=== PATIENT | male | born 1950 | race Caucasian/White ===

== ENCOUNTER → 2016-05-26 | Outpatient (CLI) | payer MEDICARE ==
[2016-05-26 14:28] LABS: ALBUMIN 3.8 GM/DL (3.2-5.2); CALCIUM LEVEL 9.2 MG/DL (8.8-10.2); CREATININE FOR GFR 1.38 MG/DL (0.70-1.30); GLOMERULAR FILTRATION RATE 54.9 (>49); PHOSPHORUS LEVEL 3.2 MG/DL (2.5-4.9); POTASSIUM SERUM 3.5 MEQ/L (3.5-5.1)
== END ==
LOC: M LAB 13:13
PROVIDERS: ATTEND Family Medicine
DX: N18.3 Chronic kidney disease, stage 3 (moderate) (principal)

== ENCOUNTER → 2016-10-24 | Outpatient (CLI) | payer MEDICARE ==
[2016-10-24 11:31] LABS: ALBUMIN 3.7 GM/DL (3.2-5.2); ALBUMIN/GLOBULIN RATIO 1.23 (1.00-1.93); BILIRUBIN,DIRECT 0.2 MG/DL (0.0-0.2); BILIRUBIN,TOTAL 0.5 MG/DL (0.2-1.0); TOTAL PROTEIN 6.7 GM/DL (6.4-8.2)
== END ==
LOC: M LAB 10:15
PROVIDERS: ATTEND Family Medicine
DX: K76.89 Other specified diseases of liver (principal)

== ENCOUNTER → 2016-11-10 | Outpatient (CLI) | payer MEDICARE ==
--- NOTE | 2016-11-10 12:21 | REP ---
SCROTAL SONOGRAPHY: HISTORY: Scrotal swelling. FINDINGS: Testicular parenchyma is homogeneous. No intratesticular mass lesion is seen. Right testis measures 4.1 x 2.7 x 2.6 cm. Left testicular dimensions are 5.7 x 2.3 x 2.8 cm. There is a large cystic fluid collection in the left hemiscrotum displacing the left testis inferiorly and laterally. This fluid collection measures 12.7 x 12.1 x 10.3 cm. The epididymis cannot be seen suggesting that the fluid collection may be a large left epididymal cyst or spermatic field. Hydrocele is a possibility as well. There is a small right-sided hydrocele. There are septated epididymal cysts on the right. Resistive indices are normal in both testes by Doppler 0.48 on the right and 0.69 on the left. There is no evidence of torsion. IMPRESSION: 12.7 cm cystic fluid collection in the left scrotum, epididymal cysts versus spermatocele versus hydrocele. No intratesticular mass lesion seen. Signed by Armani Galindo MD 11/10/2016 02:47 P
== END ==
LOC: M RAD 09:38
PROVIDERS: ATTEND Family Medicine
DX: N50.89 Other specified disorders of the male genital organs (principal)

== ENCOUNTER → 2017-01-28 | Outpatient (REF) | payer MEDICARE ==
[~2017-01-28] MED LIST: AMLO10TA2 PO; ASPI1TAB PO; CHLO125TA; CHLO25TA PO; CO Q100C10 PO; DOXA1TAB49; FLAX10005 PO; GLUC1CAP10 PO; KRILL OIL PO; LABE20TAB PO; LUTE6TAB2 PO; LUTECAP3 PO; SPIR25TA2; VALS1TAB48 PO; [UNRECOGNIZED DRUG - OTHER] PO
[2017-01-28 12:09] LABS: MEAN CORPUSCULAR HEMOGLOBIN 30.2 pg (27.0-33.0); MEAN CORPUSCULAR HGB CONC 32.6 g/dl (32.0-36.5); MEAN CORPUSCULAR VOLUME 92.6 fl (80.0-96.0); PLATELET COUNT, AUTOMATED 225 10^3/uL (150-450); RED CELL DISTRIBUTION WIDTH 13.9 % (11.5-14.5); WHITE BLOOD COUNT 7.5 10^3/uL (4.0-10.0)
[2017-01-28 12:21] LABS: INR 1.04
[2017-01-28 12:46] LABS: CALCIUM LEVEL 9.1 MG/DL (8.8-10.2); CREATININE FOR GFR 1.44 MG/DL (0.70-1.30); GLOMERULAR FILTRATION RATE 52.1 (>49); POTASSIUM SERUM 3.7 MEQ/L (3.5-5.1)
== END ==
LOC: M LABSMT 09:02 → M LABDRAWC 09:09
PROVIDERS: ATTEND Nurse Practitioner Women's Health
DX: Z01.818 Encounter for other preprocedural examination (principal); N43.3 Hydrocele, unspecified; N50.3 Cyst of epididymis; I11.9 Hypertensive heart disease without heart failure; N18.3 Chronic kidney disease, stage 3 (moderate); G47.33 Obstructive sleep apnea (adult) (pediatric); E66.01 Morbid (severe) obesity due to excess calories; Z68.43 Body mass index [BMI] 50.0-59.9, adult; Z23 Encounter for immunization
CPT/HCPCS: 36415; 71020; 80048; 81001; 85027; 85610; 85730; 87086; 90732; G0009; G0463

== ENCOUNTER → 2017-01-28 | Outpatient (CLI) | payer MEDICARE ==
--- NOTE | 2017-01-28 11:30 | REP ---
Clinical: Preoperative assessment. Hydrocele. . Comparison: 10/03/2015 . Technique: PA and lateral. Findings: The mediastinum and cardiac silhouette are stable and cardiomegaly is again identified and unchanged. The lung lopez are clear and without acute consolidation, effusion, or pneumothorax. The skeletal structures are intact and normal. Impression: 1. No acute cardiopulmonary process. Signed by Kai Atwood MD 01/28/2017 11:22 A
== END ==
LOC: M CLY 10:55
PROVIDERS: ATTEND Nurse Practitioner Women's Health
DX: N43.3 Hydrocele, unspecified (principal)

== ENCOUNTER 2017-02-25 06:35 | Inpatient (IN) | payer MEDICARE ==
[2017-02-25] VITALS (12 sets, daily range): BP systolic 98–132; BP diastolic 53–61; O2SAT 97
[~2017-02-25] VITALS: Ht 175.3 cm; Wt 156.0 kg
[2017-02-25] MEDS ORDERED: LR 1,000 ML IV ONE (07:00)
[2017-02-25] MEDS ORDERED: VASOPRESSIN INJ 20 UNITS/ML VIAL ONE (08:00)
[2017-02-25] MEDS ORDERED: BACITRACIN OINT 30GM ONE (08:00)
[2017-02-25] MEDS ORDERED: MIDAZOLAM INJ 2 MG/2 ML VIAL (J2250) As Ordered ONE ×3 (08:30→10:57)
[2017-02-25] MEDS ORDERED: fentaNYL 100 MCG/2 ML INJECTION (J3010) As Ordered ONE ×2 (08:30→09:07)
[2017-02-25] MEDS ORDERED: PROPOFOL 200 MG/20 ML VIAL As Ordered ONE ×2 (08:30→09:08)
[2017-02-25] MEDS ORDERED: LIDOCAINE 2% MDV 20 ML VIAL As Ordered ONE (08:31)
[2017-02-25] MEDS ORDERED: BUPIVACAINE HCL 0.25% 30 ML VIAL As Ordered ONE ×2 (08:31→08:32)
[2017-02-25] MEDS ORDERED: BACITRACIN OINT 30GM As Ordered ONE (08:35)
[2017-02-25] MEDS: CHLORHEXIDINE ORAL RINSE 0.12%/15ML 120ML BOTTLE MT SCH ×2 (09:00→21:00)
[2017-02-25] MEDS ORDERED: ePHEDrine SULFATE 25 MG/5 ML(5MG/ML) SYRINGE As Ordered ONE (09:06)
[2017-02-25] MEDS ORDERED: PHENYLEPHRINE INJ 10MG/ML VIAL (J2370) As Ordered ONE (09:30)
[2017-02-25] MEDS ORDERED: VASOPRESSIN INJ 20 UNITS/ML VIAL As Ordered ONE (09:34)
[2017-02-25 10:19] LABS: ABG BASE EXCESS -4.6 (-2.0-2.0); ABG HCO3 24.2 MEQ/L (22.0-26.0); ABG PARTIAL PRESSURE CO2 61.2 mmHg (35.0-45.0); ABG PARTIAL PRESSURE O2 105.8 mmHg (75.0-100.0); ABG TOTAL CO2 26.1 MEQ/L (23.0-31.0); ABG pH (ARTERIAL) 7.215 UNITS (7.350-7.450)
[2017-02-25 10:20] LABS: ABG STANDARD HCO3 20.7 MEQ/L (22.0-26.0)
--- NOTE | 2017-02-25 10:36 | REP ---
PORTABLE CHEST: AP portable view of the chest is performed and compared to a prior study of 01/28/2017. Heart appears enlarged. Mediastinal silhouette appears widened likely due to magnification. Vascular congestion is noted. There appears to be consolidative infiltrate or atelectasis in the left lower lobe. Endotracheal tube is seen with the tip about 5 cm above the jt. Signed by Baron Schuler MD 02/26/2017 09:07 A
[2017-02-25] MEDS ORDERED: PROPOFOL 1,000 MG/100 ML VIAL As Ordered ONE (10:43)
[2017-02-25] MEDS: MIDAZOLAM INJ 2 MG/2 ML VIAL (J2250) IV PRN ×6 (10:48→23:10)
[2017-02-25] MEDS ORDERED: MORPHINE 2 MG/ML 1ML SYRINGE As Ordered ONE (10:53)
[2017-02-25] MEDS: PROPOFOL 1,000 MG in APPROPRIATE DILUENT 1 EA IV SCH ×6 (10:55→23:11)
[2017-02-25] MEDS ORDERED: fentaNYL 100 MCG/2 ML INJECTION (J3010) IV PRN (11:00)
[2017-02-25] MEDS ORDERED: LR 1,000 ML IV SCH ×2 (11:00)
[2017-02-25] MEDS ORDERED: MORPHINE 2 MG/ML 1ML SYRINGE IV PRN (11:00)
[2017-02-25] MEDS ORDERED: ONDANSETRON 4MG/2ML VIAL (J2405) IV PRN (11:00)
[2017-02-25] MEDS ORDERED: MORPHINE 4 MG/ML 1ML SYRINGE IV PRN (11:00)
[2017-02-25 11:17] LABS: MEAN CORPUSCULAR HEMOGLOBIN 30.2 pg (27.0-33.0); MEAN CORPUSCULAR HGB CONC 32.7 g/dl (32.0-36.5); MEAN CORPUSCULAR VOLUME 92.6 fl (80.0-96.0); PLATELET COUNT, AUTOMATED 214 10^3/uL (150-450); RED CELL DISTRIBUTION WIDTH 14.1 % (11.5-14.5); WHITE BLOOD COUNT 8.6 10^3/uL (4.0-10.0)
[2017-02-25 11:18] LABS: ABG BASE EXCESS 2.2 (-2.0-2.0); ABG HCO3 29.7 MEQ/L (22.0-26.0); ABG PARTIAL PRESSURE CO2 58.6 mmHg (35.0-45.0); ABG PARTIAL PRESSURE O2 59.9 mmHg (75.0-100.0); ABG STANDARD HCO3 26.2 MEQ/L (22.0-26.0); ABG TOTAL CO2 31.5 MEQ/L (23.0-31.0); ABG pH (ARTERIAL) 7.323 UNITS (7.350-7.450)
[2017-02-25 11:42] LABS: ANION GAP 8 MEQ/L (8-16); BLOOD UREA NITROGEN 22 MG/DL (7-18); CALCIUM LEVEL 8.7 MG/DL (8.8-10.2); CARBON DIOXIDE LEVEL 32 MEQ/L (21-32); CHLORIDE LEVEL 100 MEQ/L (98-107); CREATININE FOR GFR 1.55 MG/DL (0.70-1.30); GLOMERULAR FILTRATION RATE 47.8 (>49); GLUCOSE, FASTING 213 MG/DL (80-110); MAGNESIUM LEVEL 1.9 MG/DL (1.8-2.4); PHOSPHORUS LEVEL 4.1 MG/DL (2.5-4.9); POTASSIUM SERUM 3.4 MEQ/L (3.5-5.1); SODIUM LEVEL 140 MEQ/L (136-145)
--- NOTE | 2017-02-25 11:53 | RO ---
DATE OF SURGERY: 02/25/2017 PREOPERATIVE DIAGNOSIS: Giant left symptomatic hydrocele. POSTOPERATIVE DIAGNOSIS: Giant left symptomatic hydrocele. FINDINGS: Left hydrocele fluid taken out is 500 mL. SURGERY PERFORMED: Left hydrocelectomy. SURGEON: Juan Mandel MD FRONT ELEVATOR OPERATOR: None. ANESTHESIA: Laryngeal mask airway (LMA) anesthesia and then converted to a general anesthesia. COMPLICATIONS: During the end of the procedure, the patient actually had respiratory distress requiring intubation; and for this reason, he will be admitted to a surgical intensive care unit (SICU) admitted by Dr. Pugh. ESTIMATED BLOOD LOSS (EBL): Minimal. FLUID TAKEN FROM THE HYDROCELE: 500 mL. PROCEDURE DESCRIPTION: In a patient under LMA anesthesia at the beginning of the procedure in supine position, after prepping and draping the area of concern, we started by doing a transverse incision in the left hemiscrotal sac for about 5 cm in length. Through this incision, with electro-Bovie cautery, we opened the tunica vaginalis in the tunica in a longitudinal fashion. We then resected the tunica vaginalis, and this was sent for permanent pathology analysis. We fulgurated all the bleeding vessels and everted the tunica vaginalis with 3-0 chronic in a running fashion. We then proceeded to fulgurate all the bleeding vessels from the scrotal wall with electro-Bovie cautery and drop the testicle inside the scrotal sac and closed the scrotal sac in two layers with chromic 3-0 in a running fashion. We then closed the skin in a running fashion with a 3-0 Monocryl, also. We then placed Bacitracin cream, fluffs, and a scrotal support. When we were actually closing the skin of the scrotum, the patient had some respiratory distress, having anesthesia to actually intubate him. He had severe bronchospasm with wheezing. For this reason, the patient will need to be admitted. Even though this procedure was scheduled as an outpatient procedure, he will need to be admitted as an inpatient to an intensive care unit under pulmonary critical care admission by Dr. Pugh, who was consulted. PLAN: The patient will be admitted as an inpatient to intensive care unit by Dr. Pugh. Cardiology has been consulted. Cardiology on-call, Dr. Barney, will come and evaluate the patient, also. When he is extubated and ambulating well and pain tolerated with by mouth pain medication, he will be discharged home. Tunica vaginalis was sent for a permanent pathology analysis. Of note, the patient had no family in the recovery room. For this reason, we called Alma Rosa Echavarria at . We did not find her, and we left a message that the patient was going to be admitted to [facility] due to respiratory distress and intubation into intensive care unit and admitted by Dr. Pugh.
--- NOTE | 2017-02-25 12:12 | CCN ---
DATE OF VISIT: 02/25/2017 START TIME: 0945 hours. STOP TIME: 1119 hours. I was called urgently to attend Mr. Pastor in the operating room. The patient has been examined and his chart was reviewed. I have spoken at length with anesthesia. I have reviewed his available history and physical and spoke as well with Dr. Mandel. In essence, this is a 66-year-old gentleman with longstanding hypertension, morbid obesity, and obstructive sleep apnea syndrome. Apparently he has had lower extremity edema, quite impressive for some time. He underwent an elective scrotal procedure today. He was quite hypertensive at the beginning of the case with systolic pressure at about 210. About 10 minutes before the end of the case, which was being done with laryngeal mask airway (LMA), he required increased sedation and therefore he was intubated. Reportedly, he had no significant breath sounds audible despite the tube being in good position. He had an acute decompensation regarding profound hypoxemia and hypercapnia with end tidal CO2 rising to about 80. He was given epinephrine down the tube. He was hypotensive at that point and was started on vasopressors. With changes in his mechanical ventilatory support, they were able to improve his oxygenation. On my arrival, end tidal CO2 was still about 70. Ventilator changes were made by myself. We were able to wean his oxygen supplemental needs. Good bilateral air entry was noted on my arrival and after about 15 minutes his end tidal CO2 dropped from about 62 down to 38. A blood gas done during that time period had a pH of 7.215, pCO2 of 61.2, and PaO2 of 105.8. Chest x-ray showed the endotracheal tube in good position. He had significant cardiomegaly and suboptimal inspiratory effort. Some subsegmental atelectasis was noted. All other laboratories are pending at the time of this dictation. He was taken to the recovery room. Further ventilator manipulations were made. His paralytics did wear off. He had significant increase in his blood pressure again to 220 systolic. He was given IV propofol, IV Versed and IV morphine for pain. Heart rate at a max was about 120 with a sinus mechanism, but is now back down to 80s with a sinus mechanism. Blood pressure currently 146 systolic. He does move all extremities appropriately. The remainder of his exam shows oral endotracheal and an orogastric tube in position. Pupils were reactive, sclera clear. Jugular venous system difficult to assess. Chest shows diminished but symmetric expansion. Breath sounds anteriorly are quite reasonable. There are some dependent crackles. No convincing rhonchi. Heart exam shows distant tones. Peripheral pulses diminished. There is at least 4+ pitting lower extremity edema bilaterally to the level of the hips. Abdomen is morbidly obese. There are active bowel sounds. No obvious organomegaly or masses, but body habitus hampers the exam. Extremities show no cyanosis or clubbing. Edema as outlined above. Neurologically as outlined above. Quick look echo done in the recovery room shows only minimal pericardial effusion. I do believe there are some pleural effusions. His LV does appear to have reasonable systolic function, but is quite hypertrophied. Blood gas just done at 1042 hours on a PRVC mode at a rate of 15, tidal volume 500, PEEP of 10, and FiO2 of 75% has a pH of 7.323, pCO2 of 58.6 and a PaO2 of 59.9. White blood cell count 8.6, hemoglobin 13.4, platelet count 214,000. Electrocardiogram is pending as are his cardiac enzymes. The most problems requiring my immediate presence at the bedside: 1. Acute hypoxemic and hypercapnic respiratory failure. 2. Hypertension. 3. Suspect acute decompensation of congestive heart failure (CHF). 4. Obstructive sleep apnea syndrome. At this point, we will assure adequate sedation and await formal interpretation of his echo. He await his cardiac enzymes. Dr. Mandel from urology has spoken with Dr. Barney from cardiology who will see the patient in a fairly urgent fashion. We will facilitate his transfer to the intensive care unit. We await the outcome of the above. My hopes is that if we are able to optimize his hemodynamic status, that we will be able to achieve extubation within 24 hours. At this point however, he remains critically ill. I left the bedside at 1119 hours. 94 minutes of critical care time was delivered at the bedside, not including procedure.
[2017-02-25] MEDS ORDERED: MIDAZOLAM INJ 2 MG/2 ML VIAL (J2250) IV ONE (12:42)
--- NOTE | 2017-02-25 13:34 | RO ---
DATE OF PROCEDURE: 02/25/2017 PREPROCEDURE DIAGNOSES: Hypotension, heart failure, need for vascular access. POSTPROCEDURE DIAGNOSES: Hypotension, heart failure, need for vascular access. SURGEON: Santhosh Redd MD FOUNDER: ANESTHESIA: PROCEDURE: Insertion of left subclavian central line. DESCRIPTION OF PROCEDURE: The patient's infraclavicular fossa was prepped and draped in the usual sterile fashion. The subclavian was found on the first pass and the wire was passed without difficulty. The tract was dilated and a triple lumen catheter was placed by Seldinger technique. The ports were aspirated and flushed without difficulty. Catheter was secured to the chest wall with two #3-0 silk sutures. The patient tolerated the procedure well and a chest x-ray is pending.
--- NOTE | 2017-02-25 14:09 | REP ---
PORTABLE CHEST: AP portable view of the chest is performed and compared to a prior study of the same day. Endotracheal tube is again noted with the tip at the level of the clavicles unchanged. There is placement of a left central venous catheter with the tip at the junction of the superior vena cava and right atrium. There is no pneumothorax. Nasogastric tube traverses into the stomach. Prominent cardiomediastinal silhouette is again noted unchanged. There is left lower lobe infiltrate/atelectasis unchanged. Signed by Baron Schuler MD 02/26/2017 09:14 A
[2017-02-25] MEDS: POTASSIUM CHLORIDE 10% LIQ 20 MEQ/15 ML UDC PO SCH ×2 (15:14→20:38)
[2017-02-25] MEDS: FUROSEMIDE 40 MG/4 ML VIAL (J1940) IV SCH ×2 (15:15→22:11)
[2017-02-25] MEDS: HEPARIN SOD (PORCINE) 5000 UNITS/ML VIAL SC SCH ×2 (15:15→22:11)
[2017-02-25] MEDS: LevoFLOXacin IV 500 MG in APPROPRIATE DILUENT 1 EA IV SCH (15:15)
[2017-02-25] MEDS: PANTOPRAZOLE 40MG INJ (PROTONIX) (C9113) IV SCH (15:15)
[2017-02-25 16:56] LABS: ABG BASE EXCESS 3.1 (-2.0-2.0); ABG HCO3 29.2 MEQ/L (22.0-26.0); ABG PARTIAL PRESSURE CO2 50.9 mmHg (35.0-45.0); ABG STANDARD HCO3 27.1 MEQ/L (22.0-26.0); ABG TOTAL CO2 30.8 MEQ/L (23.0-31.0); ABG pH (ARTERIAL) 7.377 UNITS (7.350-7.450)
--- NOTE | 2017-02-25 20:00 | ECGEPIP ---
Stationary ECG Study [facility] Test Date: 2017-02-25 Pat Name: SHARLENE MCQUEEN Department: Room: - Gender: M [employer]iologic [employer] Program Director: : 1950 Requested By: Jacky Pugh Order Number: [id number] Reading MD: Nico Pedersen Measurements Intervals [place] Rate: 71 P: 30 TX: 188 QRS: 2 QRSD: 125 T: 21 QT: 439 QTc: 477 Interpretive Statements SINUS RHYTHM, PVC times one Possible INFERIOR MYOCARDIAL INFARCTION(Age undetermined) Nonspecific ST-T abnormalities. No prior ECG available for comparison at the time of interpretation. Electronically Signed On 02-25-2017 20:00:26 EST by Nico Pedersen
--- NOTE | 2017-02-25 22:50 | ECHO ---
DATE OF PROCEDURE: 02/25/2017 REFERRING PHYSICIAN: Kristofer Daugherty MD PATIENT LOCATION: Recovery room. REASON FOR ECHOCARDIOGRAM: Pericardial effusion, respiratory failure. 2D COMMENTS: 1. Normal left ventricular size with probably moderately increased left ventricular wall thickness. Left ventricular systolic ejection fraction is normal estimated at 65 to 70%. 2. The left atrium appeared to be mildly enlarged. Normal right atrium and right ventricle noted in limited views. 3. The aortic root appeared to be mildly enlarged. 4. The atrial septum appeared to be normal without evidence of defect or shunt in limited views. 5. Trace to small pericardial effusion noted, no evidence of cardiac tamponade. 6. Mildly calcified aortic valve with normal leaflet excursion. Mildly calcified mitral annulus with normal anterior mitral valve leaflet motion. Normal tricuspid valve. The pulmonic valve and proximal pulmonary artery branches were not well visualized. 7. The inferior vena cava was enlarged, central venous pressure is most likely limited. DOPPLER: Only mild tricuspid regurgitation detected. The maximum tricuspid valve velocity was 2.7 m/s. IMPRESSION: 1. The study was technically limited due to poor acoustic window secondary to body habitus. 2. Normal global left ventricular systolic function with moderate concentric left ventricular hypertrophy. There are some findings of left ventricular diastolic dysfunction. 3. Aortic valve sclerosis without stenosis or aortic regurgitation. 4. Isolated mildly dilated left atrium. No evidence of significant mitral regurgitation. This is most likely related to underlying left ventricular diastolic dysfunction. 5. Mild tricuspid regurgitation with mild pulmonary hypertension. 6. Trace to small pericardial effusion noted, no evidence of cardiac tamponade. 7. The inferior vena cava was mildly enlarged, central venous pressure is most likely elevated.
[2017-02-26] VITALS (18 sets, daily range): BP systolic 104–155; BP diastolic 54–90; O2SAT 97
[2017-02-26] MEDS: MIDAZOLAM INJ 2 MG/2 ML VIAL (J2250) IV PRN ×3 (00:49→02:50)
[2017-02-26] MEDS: PROPOFOL 1,000 MG in APPROPRIATE DILUENT 1 EA IV SCH ×2 (00:49→05:24)
[2017-02-26] MEDS ORDERED: EPINEPHrine 1MG/10ML SYRINGE 1.5IN ONE (05:12)
[2017-02-26] MEDS: HEPARIN SOD (PORCINE) 5000 UNITS/ML VIAL SC SCH ×3 (05:24→21:18)
[2017-02-26] MEDS: FUROSEMIDE 40 MG/4 ML VIAL (J1940) IV SCH ×3 (05:24→21:19)
[2017-02-26 05:58] LABS: MEAN CORPUSCULAR HEMOGLOBIN 29.6 pg (27.0-33.0); MEAN CORPUSCULAR HGB CONC 32.4 g/dl (32.0-36.5); MEAN CORPUSCULAR VOLUME 91.6 fl (80.0-96.0); PLATELET COUNT, AUTOMATED 218 10^3/uL (150-450); RED CELL DISTRIBUTION WIDTH 14.4 % (11.5-14.5); WHITE BLOOD COUNT 12.3 10^3/uL (4.0-10.0)
[2017-02-26 06:20] LABS: ABG BASE EXCESS 5.8 (-2.0-2.0); ABG HCO3 31.2 MEQ/L (22.0-26.0); ABG PARTIAL PRESSURE CO2 47.9 mmHg (35.0-45.0); ABG PARTIAL PRESSURE O2 81.3 mmHg (75.0-100.0); ABG STANDARD HCO3 29.7 MEQ/L (22.0-26.0); ABG TOTAL CO2 32.6 MEQ/L (23.0-31.0); ABG pH (ARTERIAL) 7.431 UNITS (7.350-7.450)
[2017-02-26 06:42] LABS: ALBUMIN 3.1 GM/DL (3.2-5.2); BILIRUBIN,TOTAL 0.6 MG/DL (0.2-1.0); CALCIUM LEVEL 8.4 MG/DL (8.8-10.2); GLOMERULAR FILTRATION RATE 35.7 (>49); PHOSPHORUS LEVEL 4.5 MG/DL (2.5-4.9); POTASSIUM SERUM 3.2 MEQ/L (3.5-5.1); TOTAL PROTEIN 6.2 GM/DL (6.4-8.2)
[2017-02-26] MEDS ORDERED: PHENYLEPHRINE INJ 10MG/ML VIAL (J2370) As Ordered ONE (07:28)
--- NOTE | 2017-02-26 08:08 | IPN ---
DATE: 02/26/2017 Mr. Pastor had a relatively uneventful night. He apparently was somewhat agitated, but then it became obvious he just wanted to communicate. This morning he is alert and he writes questions on a pad. He denies any chest pain. He denies any dyspnea. He wants to be extubated. His vital signs this morning blood pressure is 104/54. He has been normotensive throughout the night. Heart rate is in the 60s and 70s, sinus rhythm. He did not have any arrhythmias overnight. Temperature 99.5. Saturation 96% of 60% FIO2. Fluid balance after arrival to ICU yesterday was about 1600 negative, is another 1100 negative today. Weight has not been any documented this morning. His lung sounds are sound relatively clear to auscultation. I do not appreciate any crackles or wheezing. His heart sounds are very muffled corresponding to his large body habitus, but I do not appreciate any distinct gallop, rub or murmur. Abdomen is very obese, but soft. There is very prominent edema of the lower extremities. Laboratory gallardo this morning, potassium was only 3.2, BUN 27, creatinine 2 for a GFR of 36 and glucose was 131. Mildly elevated LFTs. His troponin remained negative. CK was to 916, albumin is 3.1 ASSESSMENT/PLAN: Mr. Pastor 66-year-old man who unfortunately has not provided any good history, but to my review of available notes, he does not have any prior history of coronary artery disease. He presented for elective hydrocele surgery and during the procedure apparently there was of fairly abrupt desaturation, with difficulty moving air. He was very hypercapnic and received epinephrine through the ET tube and also IV that eventually led to reversion led to reversion of his likely bronchospasm. He certainly has very prominent right-sided congestive heart failure, but somewhat surprisingly his echocardiogram yesterday revealed not only preserved LV systolic function, but also essentially normal pulmonary artery pressure. I am not quite sure what actually occurred during the procedure. At this point, we will provide supportive management. There is no evidence for ischemic event. Will obtain followup electrocardiogram today but his cardiac enzymes remain negative and his LV systolic function was normal just a few hours after the intubation. His blood pressure apparently was extremely high during the procedure, but it has been normotensive when he is in ICU. He is receiving propofol, but I believe that after the propofol is weaned off, he may need some antihypertensive medications. We will treat the blood pressure depending on his clinical course. I am not going to introduce any medication now. As far as the heart failure is concerned, his creatinine is substantially higher today than it was yesterday and this is even in the setting of being intubated which generally is certainly beneficial for the treatment of CHF. At this point I would cut down on the amount of diuresis. We will have to get a renal ultrasound. GONZALEZ
[2017-02-26] MEDS ORDERED: POTASSIUM CHLORIDE 10% LIQ 20 MEQ/15 ML UDC NG SCH (09:00)
--- NOTE | 2017-02-26 09:06 | CCN ---
DATE: 02/26/2017 START TIME: 803 STOP TIME: 08 I again attended Mario Alberto Pastor here in the intensive care unit. He has been examined and the chart is reviewed. I have spoken at length with Dr. Patterson from cardiology this morning. He remains intubated and mechanically ventilated. He is still on some level of sedation, but despite that is easily arousable and interacts appropriately. He is writing notes. T-max overnight 99.5. Heart rate 60 to 70s with a sinus mechanism. Blood pressure 104 to 130 systolic. Respiratory anywhere from 15 to the low 20s without any accessory muscle use. Total ins and outs since admission to the intensive care unit (ICU) is 2442 mL in with 4850 mL out. Most recent laboratories show a white blood cell count of 12.3, hemoglobin also 12.3, and platelet count 218,000. Sodium 142, potassium 3.2, chloride 98, CO2 34, BUN 27, creatinine 2.0, glucose 131. CK 917. Troponin 0.04. Arterial blood gas done a PRVC mode, rate of 15, tidal volume 500, PEEP of 10 and FiO2 of 60% has a pH of 7.431, pCO2 47.9, pO2 of 81.3 and saturation 96.3%. Chest x-ray shows poor inspiratory effort, but lines and tubes are in good position and no acute findings. On exam, he is easily arousable, awake, alert and moves all extremities. Pupils reactive, sclerae clear. Pharynx is midline. Tracheal and orogastric tube in position. Membranes are moist. Jugular venous system difficult to assess. Trachea is in the midline. Chest shows symmetric expansion, although it is mildly diminished. He is clear anteriorly. I do believe there are dependent crackles. No other focal adventitious breath sounds identified. Cardiac exam is distant, but regular. Peripheral pulses are diminished, but palpable. His edema persists, at least 2-3+, but appears somewhat less than yesterday. Abdomen morbidly obese, soft, with active bowel sounds. No obvious organomegaly or masses. Extremities without cyanosis or clubbing. Neurologically, grossly nonfocal and is outlined above. Most pressing problems requiring my presence at the bedside are: 1. Hypoxemic respiratory failure. 2. Hypercapnic respiratory failure, currently compensated. 3. Obstructive sleep apnea (MIKALA) on home CPAP. 4. Functional restrictive ventilatory impairment, probably multifactorial. 5. Congestive heart failure, probably on the basis of hypertensive heart disease. 6. Renal failure. 7. Status post urologic procedure. At this point, ventilator change will be made to more of a weaning compatible mode. So far, he is doing well on that. Will be monitoring him at the bedside. Will get a blood gas in about a half hour. If he does well with that, will discontinue all his sedation and likely extubate him to CPAP. He is quite anxious to achieve extubation. I have spoken with Dr. Saleem from the [facility] who is now involved in his care covering for Dr. Sams. His hypokalemia is being addressed. His creatinine is mildly increased, probably on the basis of his diuresis, but given the fact that he is soon to be extubated, will continue for now. He is certainly making reasonable urine. Will proceed as outlined above. Overall, he remains critically ill. I appreciate the input of the consulting physicians. I left the bedside at 0847 hours. 43 minutes of critical care time delivered at the bedside, not including procedures.
[2017-02-26] MEDS: POTASSIUM CHLORIDE 10% LIQ 20 MEQ/15 ML UDC PO SCH ×2 (09:12→21:17)
[2017-02-26] MEDS: PANTOPRAZOLE 40MG INJ (PROTONIX) (C9113) IV SCH (09:12)
--- NOTE | 2017-02-26 09:15 | REP ---
Portable chest x-ray: Single view. History: Respiratory failure. Comparison study: February 25, 2017. Findings: Endotracheal tube remains in good position at the level of the transverse aorta. There is respiratory motion artifact and the lungs are again exposed at a low level of inspiration. EKG monitoring electrodes are seen. There is a nasogastric tube coursing through the mediastinum. There is not sufficient radiographic penetration to determine its distal course. Cardiomegaly is observed. There are increased markings overlying the heart in the left base and the left hemidiaphragm is partially obscured. A left subclavian catheter is again seen coursing into the right mediastinum. Its tip is not visualized on the current radiograph either. Impression: Low level of inspiration. Pleuroparenchymal markings left base. Cardiomegaly. Image quality inhibited by patient body habitus, degree of inspiration, and some respiratory motion. Signed by Armani Galindo MD 02/26/2017 10:57 A
[2017-02-26 09:27] LABS: ABG BASE EXCESS 6.9 (-2.0-2.0); ABG HCO3 31.7 MEQ/L (22.0-26.0); ABG PARTIAL PRESSURE CO2 45.8 mmHg (35.0-45.0); ABG PARTIAL PRESSURE O2 67.3 mmHg (75.0-100.0); ABG STANDARD HCO3 30.6 MEQ/L (22.0-26.0); ABG TOTAL CO2 33.1 MEQ/L (23.0-31.0); ABG pH (ARTERIAL) 7.458 UNITS (7.350-7.450)
[2017-02-26 10:49] LABS: ABG BASE EXCESS 7.6 (-2.0-2.0); ABG HCO3 32.9 MEQ/L (22.0-26.0); ABG PARTIAL PRESSURE CO2 48.7 mmHg (35.0-45.0); ABG PARTIAL PRESSURE O2 73.3 mmHg (75.0-100.0); ABG STANDARD HCO3 31.3 MEQ/L (22.0-26.0); ABG TOTAL CO2 34.4 MEQ/L (23.0-31.0); ABG pH (ARTERIAL) 7.448 UNITS (7.350-7.450)
--- NOTE | 2017-02-26 14:30 | CR ---
DATE: 02/26/[address] Pugh. PRIMARY CARE PROVIDER: Dr. Alonzo Sams HISTORY: We were consulted on Mario Alberto Pastor, who had respiratory failure requiring intubation prior to a urologic procedure. He is currently intubated in the ICU. We are asked to see him for his medical care. To review, his past medical history; he is hypertensive, has hyperlipidemia, obstructive sleep apnea (MIKALA) for which he uses continuous positive airway pressure (CPAP) under the direction of Dr. Cooley, diagnosis of "adult adjustment disorder," renal stones, past history of Lyme disease. MEDICATIONS: - labetalol 200 mg two tablets (400 mg) twice a day - amlodipine 10 mg daily - spironolactone 25 mg twice a day - valsartan 320 mg at bedtime - doxazosin 8 mg daily - chlorthalidone 25 mg daily - flaxseed oil - lutein - supposed to be using a CPAP ALLERGIES: QUINAPRIL, caused a cough; ATENOLOL, caused bad dreams; CYCLOBENZAPRINE, caused itching. SOCIAL HISTORY: Nonsmoker. Negative alcohol screening in the office. Retired sanitation truck driver. Currently volunteers for the [employer]. Review of his office record shows that he is followed by [facility]. Most recent appointment there was 12/29. His most recent echocardiogram there was 06/28, ejection fraction of 85%, left atrial enlargement 48 mm. LVH noted. Impaired diastolic function noted. Pulmonary hypertension noted. Most recent appointment with [facility] was 06/[address] Cooley, noted he had MIKALA and was compliant with his CPAP of 8 cm of water pressure. Patient is intubated, sedated. Lungs have decreased breath sounds. Heart, regular rhythm. Abdomen is obese. The scrotum is swollen and erythematous. Extremities have 2+ peripheral edema beneath compression stockings. LABS: White count is 12.3, hemoglobin 12.3, platelets 218. Sodium 142, potassium 3.2, BUN 27, creatinine 2.0, glucose 131, AST/ALT 80/82. Troponins are flat. Albumin is 3.1 (baseline creatinine is around 1.5). IMPRESSION: 1. Respiratory failure requiring intubation. Treatment per pulmonary. 2. Hypertension. He is off his antihypertensives. Blood pressure is well controlled. 3. Decompensated congestive heart failure (versus decompensated right-sided heart failure from chronic respiratory insufficiency secondary to morbid obesity and obstructive sleep apnea (MIKALA). Plan: He is being diuresed. Diuresed about a liter yesterday. He still has significant peripheral edema. We need to keep a close eye on renal function. I have ordered some supplemental potassium for today. 4. Question scrotal cellulitis. He is on Levaquin. Will clarify indications for that. He had a left hydrocelectomy yesterday. 5. Hypokalemia. Supplemental potassium has been ordered. 6. Hyperglycemia. His blood sugars are mildly elevated. He might have some underlying diabetes. Will check a hemoglobin A1c.
[2017-02-26] MEDS: LevoFLOXacin IV 500 MG in APPROPRIATE DILUENT 1 EA IV SCH (15:51)
[2017-02-26] MEDS ORDERED: SLF 3 ML SYR IV PRN (17:00)
[2017-02-26] MEDS ORDERED: SODIUM CHLORIDE 0.9% INJ 10 ML SYR IV PRN (17:00)
--- NOTE | 2017-02-26 20:40 | CR ---
DATE OF CONSULTATION: 02/25/2017 REASON FOR CONSULTATION: Respiratory failure. REFERRING PROVIDER: Dr. Juan Mandel, urology. PRIMARY CARE PROVIDER: Dr. Alonzo Sams HISTORY OF PRESENT ILLNESS: 66-year-old male was brought today to the operating room for an outpatient left hydrocelectomy. The patient has a history of hypertension, morbid obesity, obstructive sleep apnea for which he has been on continuous positive airway pressure (CPAP), and chronic peripheral/lower extremity edema. About 2 days ago, he had an echocardiogram done by Dr. Pedersen, whom he had seen at that time and it revealed a normal global left ventricular systolic function, no significant valvular heart disease. It seemed that when the patient arrived at the hospital for the surgery, his blood pressure was markedly elevated with the systolic reported to be about 210 mmHg and he was reporting shortness of breath and pedal edema, but he told the medical staff that this was chronic. The surgery was started without being intubated, but using a laryngeal mask airway and within 10 minutes to the surgery, almost done, he developed acute respiratory failure and was hypoxemic and dropped his blood pressure. He was intubated and then treated with bronchodilators, epinephrine down the endotracheal (ET) tube, and started briefly on vasopressor. According to the medical staff, he also was wheezing. It seemed that he quickly recovered after being seen by port steward. He was given also IV Lasix. His first arterial blood gas (ABG) revealed a pH of 7.21 with a pCO2 of 61, and a pO2 of 105.8. His chest x-ray revealed cardiomegaly and the ET tube was in good position. He had an echocardiogram at bedside that revealed a normal global left ventricular systolic function without any significant valvular heart disease. His first serum troponin was negative. Cardiology consult was called. When I saw Mr. Mario Alberto Pastor, Dr. Redd was about to insert a triple lumen catheter for him. He was not in acute distress. His blood pressure was good with a systolic of 120 mmHg and his pulse was about 74 beats per minute. He was however agitated. The nurse in the recovery room was at bedside. All those informations were taken from the chart as well as the medical staff, including anesthesiologist. This evening again when I saw Mr. Mario Alberto Pastor, he was intubated, and sedated. His second set of serum troponin done this afternoon also was negative. His EKG was reviewed earlier today and there was no significant changes from prior tracing. It revealed possible prior inferior wall infarct and nonspecific ST-T abnormalities. MEDICATIONS AT HOME: - labetalol - doxazosin - valsartan - chlorthalidone - spironolactone - amlodipine - flaxseed - lithium - glucosamine - krill oil - Vicodin - Viagra CURRENT MEDICATIONS: Are: - subcutaneous heparin - Lasix 40 mg IV every 8 hours - morphine sulfate 4 mg every 3 hours IV as needed for severe pain - midazolam 2 mg IV every 50 minutes as needed for sedation - morphine sulfate 2 mg IV every 8 hours as needed for pain - propofol - pantoprazole 40 mg IV daily - chlorhexidine gluconate swab used twice a day PAST MEDICAL HISTORY: Positive for, as mentioned above, hypertension, hyperlipidemia, morbid obesity, obstructive sleep apnea, kidney stone, arthritis with degenerative joint disease, erectile dysfunction. PAST SURGICAL HISTORY: Positive for tonsillectomy and surgery done in his right index finger for an abscess in 1971. FAMILY HISTORY: Positive for coronary artery disease, his father had a heart attack. ALLERGIES: To ATENOLOL, CYCLOBENZAPRINE, SURFACAINE, and QUINAPRIL. SOCIAL HISTORY: The patient has a drink on occasion according to the chart. Otherwise, no history of smoking. 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 PHYSICAL EXAMINATION: When I saw him earlier today, he was in supine in bed, in no acute distress at rest, sedated. His examination of the head is atraumatic with ET tube in place. Neck is supple and I could not appreciate any carotid bruits. There was increased jugular venous distention (JVD). The lungs anteriorly did not reveal any wheezing. I could not appreciate any crackles. There was good air entry. The heart examination revealed normal S1 and S2 and I could not appreciate any gallops. The point of maximum impulse (PMI) is slightly displaced inferiorly. There is no rub. The abdomen is markedly obese and bowel sounds were active. Extremities revealed +3 to +4 bilateral pedal edema. Neurological examination was not done. LABORATORY DATA: BMP revealed a sodium of 140, potassium 3.4, chloride 100, CO2 32, BUN 22, creatinine 1.55, GFR 47.8, fasting glucose 213, calcium 8.7. Serum magnesium is 1.9. First set of serum troponin was less than 0.02 and upon repeating it at about 6 hours later it was 0.04. CBC revealed a WBC of 8.6, hemoglobin 13.4, hematocrit 41.0, and platelets 214,000. IMPRESSION: 66-year-old male with above medical problems was admitted for an outpatient left hydrocelectomy and within 10 minutes of the surgery, he developed respiratory distress and was in acute hypoxemic hypercapnic respiratory failure. The etiology is not quite clear, probably multifactorial due to acute decompensated heart failure secondary to left ventricular diastolic dysfunction, patient probably has chronic heart failure and his blood pressure was markedly elevated upon presentation and he did receive IV fluids. This also was aggravated by probably inadequate intubation using the laryngeal mask airway. It seems he has yet responded to the initial treatment and currently on IV Lasix and case was discussed with Dr. Pugh and will continue the same for now. The plan is to wean him off the ventilator tomorrow and slowly will restart his cardiac medications. Tonight, I will repeat his serum troponin. His echocardiogram revealed findings consistent with hypertensive heart disease with mild pulmonary hypertension and probably elevated central venous pressure. His medications once extubated will be readjusted and Dr. Patterson will be seeing for me tomorrow, 02/26/2017. It was a pleasure to participate in the care of Mr. Mario Alberto Pastor for his underlying cardiac condition. I will continue to monitor him along with you while in the hospital. Please do not hesitate to call if any questions.
[2017-02-26] MEDS: SODIUM CHLORIDE 0.9% INJ 10 ML SYR IV SCH (21:19)
[2017-02-26] MEDS: SLF 3 ML SYR IV SCH (21:22)
[2017-02-27] VITALS: BP 127/79
[2017-02-27 04:00] VITALS: BP 137/73
[2017-02-27] MEDS: SLF 3 ML SYR IV SCH ×3 (05:37→22:02)
[2017-02-27] MEDS: HEPARIN SOD (PORCINE) 5000 UNITS/ML VIAL SC SCH ×3 (05:37→22:01)
[2017-02-27] MEDS: FUROSEMIDE 40 MG/4 ML VIAL (J1940) IV SCH ×3 (05:37→18:00)
[2017-02-27] MEDS: SODIUM CHLORIDE 0.9% INJ 10 ML SYR IV SCH ×3 (05:38→22:02)
[2017-02-27 05:49] LABS: ABG BASE EXCESS 6.7 (-2.0-2.0); ABG HCO3 31.4 MEQ/L (22.0-26.0); ABG PARTIAL PRESSURE CO2 44.7 mmHg (35.0-45.0); ABG PARTIAL PRESSURE O2 69.4 mmHg (75.0-100.0); ABG STANDARD HCO3 30.5 MEQ/L (22.0-26.0); ABG TOTAL CO2 32.7 MEQ/L (23.0-31.0); ABG pH (ARTERIAL) 7.464 UNITS (7.350-7.450)
[2017-02-27 05:55] LABS: MEAN CORPUSCULAR HEMOGLOBIN 30.2 pg (27.0-33.0); MEAN CORPUSCULAR HGB CONC 32.5 g/dl (32.0-36.5); MEAN CORPUSCULAR VOLUME 92.9 fl (80.0-96.0); PLATELET COUNT, AUTOMATED 225 10^3/uL (150-450); RED CELL DISTRIBUTION WIDTH 14.9 % (11.5-14.5); WHITE BLOOD COUNT 10.1 10^3/uL (4.0-10.0)
[2017-02-27 06:23] LABS: ALBUMIN 3.4 GM/DL (3.2-5.2); ALBUMIN/GLOBULIN RATIO 1.06 (1.00-1.93); BILIRUBIN,TOTAL 0.9 MG/DL (0.2-1.0); CALCIUM LEVEL 8.3 MG/DL (8.8-10.2); CREATININE FOR GFR 2.41 MG/DL (0.70-1.30); GLOMERULAR FILTRATION RATE 28.8 (>49); PHOSPHORUS LEVEL 3.9 MG/DL (2.5-4.9); TOTAL PROTEIN 6.6 GM/DL (6.4-8.2)
--- NOTE | 2017-02-27 07:34 | REP ---
Portable chest, 06:57 a.m., single AP view, the patient semi upright: The right costophrenic angle is opacified as an interval change suggestive of a new right pleural effusion versus artifact from superimposed chest wall soft tissues. Lung lopez otherwise clear. Cardiac size is enlarged, unchanged. The susie, mediastinum, bony thorax are unremarkable. The endotracheal tube and nasogastric tube have been removed. Signed by Baron Edmondson MD 02/27/2017 07:26 A
[2017-02-27 08:00] VITALS: BP 144/81
[2017-02-27] MEDS: POTASSIUM CHLORIDE 10 MEQ SR TABLET PO SCH ×4 (08:13→22:00)
[2017-02-27] MEDS: PANTOPRAZOLE 40MG INJ (PROTONIX) (C9113) IV SCH (08:13)
[2017-02-27] MEDS ORDERED: GLUCAGON FOR INJ 1 MG VIAL (J1610) SC PRN (08:15)
[2017-02-27] MEDS ORDERED: DEXTROSE 50% 50 ML SYRINGE IV PRN (08:15)
[2017-02-27] MEDS ORDERED: GLUCOSE 4 GM CHEW TABLET PO PRN (08:15)
--- NOTE | 2017-02-27 08:40 | IPN ---
DATE: 02/27/2017 Jorge A was seen in ICU. He has had an aggressive diuresis. He has put out 3.3 liters in the last 48 hours. His renal function is declining a bit as a consequence of this. He denies shortness of breath, but then he says "I have never been short of breath." (I reminded him that he was intubated for respiratory failure) he denies any chest pain. He is frustrated about still being in the hospital. No rhythm disturbances on telemetry per nursing staff. PHYSICAL EXAMINATION: 137/73, pulse of 80, respiratory rate 18, 92% oxygen saturation on his CPAP. GENERAL APPEARANCE: Lying flat in bed in no distress. No jugular venous distention (JVD). LUNGS: Decreased breath sounds. HEART: Regular rate and rhythm. No murmur. ABDOMEN: Obese, nontender, no masses. 2+ peripheral edema. LABORATORIES: Echocardiogram returns and shows ejection fraction of 65-70%. He had a small pericardial effusion with no hemodynamic impingement. Sodium 143, potassium 3.0, BUN 35, creatinine 2.4, white count 10.1, hemoglobin 12.8, platelets 225. IMPRESSION: 1. Acute respiratory failure with hypoxemic hypercapnic respiratory failure. He is extubated. His oxygen saturations are maintained at a satisfactory range. There is no rhythm disturbances. I think he can be transferred to the floor. He was transferred from pulmonology to the primary care service yesterday. 2. Congestive heart failure (CHF) with preserved ejection fraction (versus acute on chronic cor pulmonale). He is being aggressively diuresed but his renal function is deteriorating. Therefore we are going to change his diuretic regimen, aiming for diuresis of around a liter per day, as I do not think he is tolerating the 2 liters a day that we are currently removing. Followup labs have been ordered. 3. Hypokalemia. Increase by mouth potassium. Check magnesium again tomorrow. 4. Hypertensive heart disease. Blood pressure is under good control. 5. Scrotal cellulitis. He is on Levaquin, had a left hydrocelectomy yesterday. Would like urology to see the patient in his postop state. I do not think they have seen him since surgery. 6. Diabetes type 2. The patient has type 2 diabetes, he had some hyperglycemia. I did a hemoglobin A1c, came back at 7.8% confirming type 2 diabetes. I will put him on fingerstick blood sugars with coverage. This is a new diagnosis for him. His primary provider is Dr. Sams who will be rounding this weekend and he can decide on an oral regimen upon discharge. I expect the patient will be here through the weekend as we continues slow gradual diuresis. Patient is frustrated about this, but he can discuss the disposition plans with his primary tomorrow.
[2017-02-27] MEDS: HumaLOG INSULIN (NovoLOG) PER UNIT SC SCH ×4 (09:16→21:00)
[2017-02-27 10:31] LABS: FREE T4 1.53 NG/DL (0.76-1.46)
--- NOTE | 2017-02-27 14:01 | ECGEPIP ---
Stationary ECG Study [facility] Test Date: 2017-02-26 Pat Name: SHARLENE MCQUEEN Department: Room: [place] [address] Gender: M Sheriffs: JAZLYN : 1950 Requested By: Liliam Patterson Order Number: [id number] Reading MD: Nico Pedersen Measurements Intervals Nettie Rate: 69 P: 45 SD: 194 QRS: 12 QRSD: 126 T: 27 QT: 439 QTc: 473 Interpretive Statements SINUS RHYTHM WITH SINUS ARRHYTHMIA Possible INFERIOR MYOCARDIAL INFARCTION, PROBABLY OLD Nonspecific ST-T abnormalities. No significant change c/w 02/25/2017 Electronically Signed On 02-27-2017 14:01:20 EST by Nico Pedersen
[2017-02-27 14:45] VITALS: BP 150/92
[2017-02-27] MEDS: LevoFLOXacin IV 500 MG in APPROPRIATE DILUENT 1 EA IV SCH (16:22)
[2017-02-27 22:00] VITALS: BP 154/80
[2017-02-28] MEDS: FUROSEMIDE 40 MG/4 ML VIAL (J1940) IV SCH ×4 (00:39→18:00)
[2017-02-28] MEDS: HEPARIN SOD (PORCINE) 5000 UNITS/ML VIAL SC SCH ×3 (05:38→21:58)
[2017-02-28] MEDS: SODIUM CHLORIDE 0.9% INJ 10 ML SYR IV SCH ×3 (05:39→21:59)
[2017-02-28] MEDS: SLF 3 ML SYR IV SCH ×3 (05:39→21:59)
[2017-02-28 05:59] LABS: MEAN CORPUSCULAR HEMOGLOBIN 29.9 pg (27.0-33.0); MEAN CORPUSCULAR HGB CONC 32.1 g/dl (32.0-36.5); MEAN CORPUSCULAR VOLUME 93.2 fl (80.0-96.0); PLATELET COUNT, AUTOMATED 236 10^3/uL (150-450); RED CELL DISTRIBUTION WIDTH 14.7 % (11.5-14.5)
[2017-02-28 06:00] VITALS: BP 142/89
[2017-02-28 06:26] LABS: CALCIUM LEVEL 9.1 MG/DL (8.8-10.2); CREATININE FOR GFR 2.12 MG/DL (0.70-1.30); GLOMERULAR FILTRATION RATE 33.3 (>49); MAGNESIUM LEVEL 2.2 MG/DL (1.8-2.4); POTASSIUM SERUM 3.4 MEQ/L (3.5-5.1)
[2017-02-28] MEDS: PANTOPRAZOLE 40MG INJ (PROTONIX) (C9113) IV SCH (08:47)
[2017-02-28] MEDS: POTASSIUM CHLORIDE 10 MEQ SR TABLET PO SCH ×4 (10:01→21:58)
[2017-02-28] MEDS: HumaLOG INSULIN (NovoLOG) PER UNIT SC SCH ×4 (10:01→21:00)
[2017-02-28 14:00] VITALS: BP 138/72
[2017-02-28] MEDS: LevoFLOXacin 500 MG TABLET PO SCH (18:33)
[2017-03-01] MEDS: HEPARIN SOD (PORCINE) 5000 UNITS/ML VIAL SC SCH ×3 (05:11→22:15)
[2017-03-01] MEDS: SLF 3 ML SYR IV SCH ×3 (05:13→22:15)
[2017-03-01] MEDS: SODIUM CHLORIDE 0.9% INJ 10 ML SYR IV SCH ×3 (05:13→22:15)
[2017-03-01 05:41] LABS: MEAN CORPUSCULAR HEMOGLOBIN 29.6 pg (27.0-33.0); MEAN CORPUSCULAR HGB CONC 31.9 g/dl (32.0-36.5); MEAN CORPUSCULAR VOLUME 92.7 fl (80.0-96.0); PLATELET COUNT, AUTOMATED 233 10^3/uL (150-450); RED CELL DISTRIBUTION WIDTH 14.5 % (11.5-14.5); WHITE BLOOD COUNT 9.3 10^3/uL (4.0-10.0)
[2017-03-01 05:56] LABS: CALCIUM LEVEL 8.5 MG/DL (8.8-10.2); CREATININE FOR GFR 2.05 MG/DL (0.70-1.30); GLOMERULAR FILTRATION RATE 34.7 (>49); POTASSIUM SERUM 3.7 MEQ/L (3.5-5.1)
[2017-03-01 06:00] VITALS: BP 169/87
[2017-03-01] MEDS: PANTOPRAZOLE 40MG INJ (PROTONIX) (C9113) IV SCH (08:06)
[2017-03-01] MEDS: POTASSIUM CHLORIDE 10 MEQ SR TABLET PO SCH ×3 (08:07→20:42)
[2017-03-01] MEDS: HumaLOG INSULIN (NovoLOG) PER UNIT SC SCH ×4 (08:07→20:43)
[2017-03-01] MEDS: FUROSEMIDE 40 MG TAB PO SCH (08:07)
--- NOTE | 2017-03-01 12:07 | IPN ---
DATE: 02/28/2017 The patient is seen today [facility]. He is a patient of mine normally in the community. He came into the facility 3 days ago to have elective surgical treatment of rather large hydrocele. When the procedure had to be converted from local to general, he had respiratory distress after he was intubated. It is unclear, based upon what I can see, whether he had an acute pulmonary edema or perhaps bronchospasm secondary to the intubation. He was on a vent in the intensive care unit (ICU). He woke up readily and extubated without any problems. He is now on the medical floor. Even though his CPK went up his troponins did not change nor did his cardiogram. He has been seen by the finance insurance manager. He says that his breathing is back to normal. He is not doing any coughing. Not having any chest pains at all. He still has a urinary catheter which the urologist has recommend be discontinued. He is ambulating although does have some leg discomforts on ambulation. He still on a net negative IV diuresis regimen. He is not having any fever or chills. Current medication regimen calls for him to be on the furosemide 40 mg every 6 hours IV. Levaquin 500 mg daily and this was more of a urinary prophylactic medication. He is on sliding-scale insulin, potassium 40 mg four times day, subcu heparin and net negative pantoprazole. Interestingly, despite a long history of difficult to treat hypertension, he is not on any of his usual antihypertensive medications and he is normotensive. On examination, his temperature is 98.7, blood pressure 138/72, pulse 89 and regular, respirations 20, O2 saturation on room air 91% at this time. He is alert, oriented, pleasant and cooperative, somewhat [id number] as his norm. It is difficult to assess him for venous distension in his neck. His lungs are clear. His heart has regular rhythm. There is no murmur, click or gallop. Abdomen is soft, protuberant, nontender without any masses or organomegaly. Bowel sounds are active. Legs feel soft, even though they are large. I would not venture that he has any edema at this time. He says that he has not been weighed since he came into the facility, but I am looking at his weights and he appears to have gone from 164 kg on 02/25/2017 to 155.7 kg yesterday. His Input and output yesterday: 1080 in and 2495 out. Hemoglobin today 13.1, WBC 9000. BUN 39, creatinine 2.12, potassium 3.4, hemoglobin A1c was 7.8%. Blood sugar fasting this morning was 131. It has ranged during the last 24 hours from 121 to 139. Chest x-ray yesterday showed opacification of the right costophrenic angle. This suggests a new right pleural effusion versus artifact from superimposed chest wall soft tissues. Lung lopez are otherwise clear. Cardiac size is enlarged but unchanged. ASSESSMENT: 1. Respiratory distress after intubation suggestive of acute pulmonary edema versus bronchospasm secondary to his intubation. 2. Hypertensive heart disease with apparent congestive heart failure. 3. Diabetes mellitus evidenced by elevated blood sugars and hemoglobin A1c 7.8% . 4. Morbid obesity. PLAN: The patient appears really quite good for him today. He has diuresed about 20 pounds. His BUN and creatinine have gone up at bit, no doubt due to diuresis. Also he probably has an element of hypertensive nephrosclerosis. The urologist has recommended that we remove his catheter. I think we do not need it any more for monitoring of his input and output or for postoperative drainage after his urologic surgery. I am going to discontinue his net negative furosemide and just put him on scheduled furosemide. Will continue on the antibiotic as noted. Continue on his DVT prophylaxis. If his blood pressures start going up, I would reinstate his beta-ankit. The patient will probably be able to be discharged on 03/02/2017. Plan on following up with cardiology and pulmonology as an outpatient and also following up with myself. GONZALEZ
[2017-03-01 14:00] VITALS: BP 171/91
[2017-03-01 15:36] VITALS: BP 152/92
[2017-03-01] MEDS: LevoFLOXacin 500 MG TABLET PO SCH (18:21)
[2017-03-01] MEDS: LABETALOL 200 MG TAB PO SCH (20:43)
[2017-03-01 22:00] VITALS: BP 166/89
[2017-03-02] MEDS: SODIUM CHLORIDE 0.9% INJ 10 ML SYR IV SCH (05:18)
[2017-03-02] MEDS: SLF 3 ML SYR IV SCH (05:18)
[2017-03-02] MEDS: HEPARIN SOD (PORCINE) 5000 UNITS/ML VIAL SC SCH (05:28)
[2017-03-02 05:43] LABS: MEAN CORPUSCULAR HEMOGLOBIN 30.4 pg (27.0-33.0); MEAN CORPUSCULAR HGB CONC 32.5 g/dl (32.0-36.5); MEAN CORPUSCULAR VOLUME 93.7 fl (80.0-96.0); PLATELET COUNT, AUTOMATED 245 10^3/uL (150-450); RED CELL DISTRIBUTION WIDTH 14.2 % (11.5-14.5); WHITE BLOOD COUNT 8.4 10^3/uL (4.0-10.0)
[2017-03-02 06:00] VITALS: BP 165/72
[2017-03-02 06:08] LABS: CALCIUM LEVEL 8.7 MG/DL (8.8-10.2); GLOMERULAR FILTRATION RATE 35.7 (>49); POTASSIUM SERUM 3.6 MEQ/L (3.5-5.1)
[2017-03-02] MEDS: HumaLOG INSULIN (NovoLOG) PER UNIT SC SCH ×2 (08:14→13:09)
[2017-03-02 08:15] VITALS: BP 142/66
[2017-03-02] MEDS: PANTOPRAZOLE 40MG INJ (PROTONIX) (C9113) IV SCH (08:15)
[2017-03-02] MEDS: POTASSIUM CHLORIDE 10 MEQ SR TABLET PO SCH (08:15)
[2017-03-02] MEDS: LABETALOL 200 MG TAB PO SCH (08:15)
[2017-03-02] MEDS: FUROSEMIDE 40 MG TAB PO SCH (08:15)
[2017-03-02] MEDS ORDERED: TORS20TA2 PO (10:55)
[2017-03-02] MEDS ORDERED: LEVA1TAB2 PO (11:03)
--- NOTE | 2017-03-02 12:22 | IPN ---
DATE: 03/01/2017 The patient is seen today on [facility]. He is reasonably comfortable. He is not having any coughing or shortness of breath. No chest pains or palpitations. No abdominal pain. His scrotum is feeling better. He is voiding just fine without the catheter in. His blood pressures have gone up though, which I was expecting that. He continues on sliding-scale insulin and Lasix dosed just once a day. He is on potassium. He is on Levaquin. He has been started on oral furosemide. On examination, temperature is 97.9. Pulse 84 and regular. Most recent blood pressure 152/92, though it had been 169-171/87. He is not in any distress. Appears his usual self. A little bit hard of hearing. Lungs are clear. Heart has a regular rhythm without any murmur, click or gallop. Abdomen: Soft, protuberant and nontender. Without any masses or organomegaly. We looked at his groin and scrotum. Even though it is much more enlarged than normal, it is better than it was before surgery. He has healing incisions. His legs are not tense. I would say there is perhaps trace edema today. He has thromboembolic deterrent (SOLEDAD) hose on. Today's labs show hemoglobin 12.6, WBC 9300, BUN 38, creatinine 2.05 which is better, potassium 3.9, glucose is 138. ASSESSMENT: 1. Respiratory distress after intubation suggestive of acute pulmonary edema versus bronchospasm secondary to intubation. 2. Hypertensive heart disease with congestive heart failure. 3. Diabetes mellitus. 4. Morbid obesity. 5. Status post surgery for hydrocele. PLAN: The patient is still looking good and able to tolerate his having his catheter out. His pressures are going up, which is not surprising given the fact that he is not taking most of the medications that he was on at home. We will start him on half of what he was taking at home in terms of labetalol. He was also taking 320 mg daily of losartan as well as spironolactone and 10 mg of amiloride at home. I think he was also taking doxazosin 8 mg daily. Will reduce his potassium supplement. I think unless the blood pressure is wildly out of control or he has any cardiopulmonary symptoms that he could be discharged home with management as an outpatient. He tells me he has a cardiology appointment with Dr. Pedersen scheduled for this week, but he is not sure which day. Certainly would not want him to miss that. Will follow up with him in the office. I did discuss in some detail what he needs to do in terms of a diabetic diet in terms of starch limitation and portion control. . GONZALEZ
--- NOTE | 2017-03-03 08:17 | DSES ---
DATE OF ADMISSION: 02/25/2017 DATE OF DISCHARGE: 03/02/2017 ATTENDING PHYSICIAN: Dr. Wiliam Urbina PRIMARY CARE PHYSICIAN: Dr. Alozno Sams MANAGER [employer] SALES: Dr. Kamar Cooley NURSE'S AIDES TEACHER: Dr. Nico Pedersen HISTORY OF PRESENT ILLNESS: Patient was undergoing a hydrocele repair with Dr. Juan Mandel and intraoperatively developed severe respiratory distress requiring intubation. Patient was noted to have acute decompensation regarding profound hypoxemia and hypercapnia with end-tidal CO2 rising to 80, pulmonology was consulted immediately and patient was admitted to the intensive care unit (ICU). Patient is status post cardiology consult as well. Patient was significantly and aggressively diuresed throughout his hospitalization with multiple liters of fluid removed. Patient was extubated on 02/26/2017 and has been tolerating that well. Patient has been transitioned to the standard floor. Has been independent with this activities of daily livings (ADLs). Has had minimal shortness of breath. Diuresis continued. He was transitioned over to oral diuretics on 03/01/2017 and has tolerated that well. Patient has had a slight bump in his creatinine secondary to the aggressive diuresis with his most recent creatinine of 2.0 which is trending down from his highest of 2.41. At this time patient is ready for discharge to home. Imaging completed during hospitalization includes echocardiogram, this was read by Dr. Jung Barney, proves global left ventricular systolic function with moderate concentric left ventricular hypertrophy, noted aortic valve sclerosis, mildly dilated left atrium, mild tricuspid regurgitation, trace to small paracardial effusion. On physical examination today blood pressure is ranging 160 to 166 over 80s with a heart rate stable in the 70s to 80s range. HEENT: Neck is supple without lymphadenopathy or jugular venous distention (JVD). CARDIOVASCULAR: Heart rate and rhythm are regular. PULMONARY: Lungs are clear throughout. ABDOMEN: Soft and nontender. EXTREMITIES: Bilateral lower extremities are with minimal edema. ASSESSMENT: DISCHARGE DIAGNOSES: 1. Respiratory distress post intubation suggestive of acute pulmonary edema versus bronchospasm secondary to intubation. 2. Hypertensive heart disease with apparent congestive heart failure. 3. New onset diabetes mellitus. 4. Morbid obesity. PLAN: Patient will be discharged to home. He will followup with his primary care physician (PCP) within the next 5 to 7 days. Diet is 2 grams sodium carbohydrate consistent. Activities as tolerated. He will followup with his cavalry officer this as previously scheduled. Patient's medications and condition were reviewed with his cavalry officer at time of discharge. The patient will followup with his warehouse packer, Dr. Kamar Cooley, within the next 2 weeks as well to review patient's pulmonary status. Medications are as follows: - Levaquin 500 mg one by mouth daily - torsemide 20 mg one daily - aspirin 81 mg one daily - CoQ10 100 mg by mouth daily - flaxseed oil one capsule by mouth twice a day - glucosamine chondroitin one capsule by mouth daily - labetalol 400 mg by mouth twice a day - lutein one capsule by mouth four times per week - spironolactone 25 mg by mouth twice a day - krill oil 200 mg daily - multivitamin source of life four tabs by mouth daily Medications that were stopped include: - amlodipine 10 mg by mouth daily - chlorthalidone 25 mg daily - doxazosin 8 mg daily - valsartan 320 mg daily Patient is discharged in stable and satisfactory condition with no further questions at time of discharge.
== END 2017-03-02 13:18 | disposition home or self-care (01) | DRG 711 ==
LOC: M SDC 06:35 → M ICU 14:10 → M SDC 14:33 → M MSPAV 02-27 14:42
PROVIDERS: ADMIT Internal Medicine Pulmonary Disease; ATTEND Family Medicine
PROC: 5A1935Z Respiratory Ventilation, Less than 24 Consecutive Hours (ICD-10-PCS; 2017-02-25)
PROC: 02HV33Z Insertion of Infusion Device into Superior Vena Cava, Percutaneous Approach (ICD-10-PCS; 2017-02-25)
PROC: 0VB70ZZ Excision of Left Tunica Vaginalis, Open Approach (ICD-10-PCS; principal; 2017-02-25 08:00)
DX: N43.3 Hydrocele, unspecified (principal); J96.02 Acute respiratory failure with hypercapnia; J96.01 Acute respiratory failure with hypoxia; I50.33 Acute on chronic diastolic (congestive) heart failure; Z68.43 Body mass index [BMI] 50.0-59.9, adult; E11.65 Type 2 diabetes mellitus with hyperglycemia; E66.01 Morbid (severe) obesity due to excess calories; E87.6 Hypokalemia; I50.810 Right heart failure, unspecified; I11.0 Hypertensive heart disease with heart failure; N49.2 Inflammatory disorders of scrotum; E78.5 Hyperlipidemia, unspecified; G47.33 Obstructive sleep apnea (adult) (pediatric); Z99.89 Dependence on other enabling machines and devices; Z79.899 Other long term (current) drug therapy; Z88.8 Allergy status to other drugs, medicaments and biological substances

== ENCOUNTER → 2017-03-25 | Outpatient (REF) | payer MEDICARE ==
[2017-03-25 14:11] LABS: APPEARANCE, URINE CLEAR (CLEAR); BACTERIA, URINE AUTO NEGATIVE (NEGATIVE); BILIRUBIN, URINE AUTO NEGATIVE (NEGATIVE); BLOOD, URINE BLOOD NEGATIVE (NEGATIVE); COLOR, URINE YELLOW (YELLOW); GLUCOSE, URINE (UA) AUTO NEGATIVE (NEGATIVE); KETONE, URINE AUTO NEGATIVE (NEGATIVE); LEUKOCYTE ESTERASE, URINE AUTO NEGATIVE (NEGATIVE); MUCUS, URINE SMALL (NEGATIVE); NITRITE, URINE AUTO NEGATIVE (NEGATIVE); PROTEIN, URINE AUTO 2+ mg/dL (NEGATIVE); RBC, URINE AUTO 0 /HPF (0-3); SPECIFIC GRAVITY URINE AUTO 1.015 (1.002-1.035); SQUAMOUS EPITHELIAL CELL UR AU 0 /HPF (0-6); UROBILINOGEN, URINE AUTO 0.2 mg/dL (0.0-2.0); WBC, URINE AUTO 1 /HPF (0-3)
== END ==
LOC: M SMT 13:15
DX: N43.3 Hydrocele, unspecified (principal); Z79.899 Other long term (current) drug therapy
CPT/HCPCS: 81001

== ENCOUNTER → 2017-05-06 | Outpatient (CLI) | payer MEDICARE | LOC: M RAD 14:08 | DX: N18.3 Chronic kidney disease, stage 3 (moderate) (principal) | CPT/HCPCS: 76775 ==

== ENCOUNTER 2017-05-12 14:08 | Outpatient (RCR) | payer MEDICARE | END 2017-05-13 | disposition home or self-care (01) | LOC: M PT 14:08 | DX: Z51.89 Encounter for other specified aftercare (principal); M54.5 Low back pain | CPT/HCPCS: 97162 ==

== ENCOUNTER 2017-05-18 14:24 | Outpatient (RCR) | payer MEDICARE | END 2017-06-13 | LOC: M PT 14:24 | DX: Z51.89 Encounter for other specified aftercare (principal); M54.5 Low back pain | CPT/HCPCS: 97110 ==

== ENCOUNTER → 2017-07-21 | Outpatient (CLI) | payer MEDICARE | LOC: M RAD 16:25 | DX: M25.512 Pain in left shoulder (principal); M19.012 Primary osteoarthritis, left shoulder | CPT/HCPCS: 73030 ==

== ENCOUNTER → 2017-08-05 | Outpatient (CLI) | payer MEDICARE ==
[2017-08-05 18:09] LABS: ALBUMIN 3.8 GM/DL (3.2-5.2); ALBUMIN/GLOBULIN RATIO 1.19 (1.00-1.93); ALKALINE PHOSPHATASE 131 U/L (45-117); ALT/SGPT 74 U/L (12-78); ANION GAP 5 MEQ/L (8-16); AST/SGOT 52 U/L (7-37); BILIRUBIN,TOTAL 0.5 MG/DL (0.2-1.0); BLOOD UREA NITROGEN 20 MG/DL (7-18); CALCIUM LEVEL 8.9 MG/DL (8.8-10.2); CARBON DIOXIDE LEVEL 32 MEQ/L (21-32); CHLORIDE LEVEL 106 MEQ/L (98-107); CHOLESTEROL LEVEL 226 MG/DL (<200); CREATININE FOR GFR 1.19 MG/DL (0.70-1.30); GLOMERULAR FILTRATION RATE > 60.0 (>49); GLUCOSE, FASTING 121 MG/DL (70-100); HDL CHOLESTEROL 40 MG/DL (>40); LDL CHOLESTEROL 147.6 MG/DL (<100); NON-HDL-C 186 MG/DL; POTASSIUM SERUM 3.8 MEQ/L (3.5-5.1); SODIUM LEVEL 143 MEQ/L (136-145); TRIGLYCERIDES LEVEL 192 MG/DL (<150)
== END ==
LOC: M LAB 17:03
DX: I11.0 Hypertensive heart disease with heart failure (principal); E78.2 Mixed hyperlipidemia
CPT/HCPCS: 80053

== ENCOUNTER → 2017-08-13 | Outpatient (CLI) | payer MEDICARE | LOC: M ONCR 11:05 | DX: C44.310 Basal cell carcinoma of skin of unspecified parts of face (principal) | CPT/HCPCS: G0463 ==

== ENCOUNTER 2017-09-02 09:38 | Outpatient (RCR) | payer MEDICARE | END 2017-09-12 | LOC: M ONCR 09:38 | DX: C44.309 Unspecified malignant neoplasm of skin of other parts of face (principal) | CPT/HCPCS: 77300 ==

== ENCOUNTER 2017-09-14 09:57 | Outpatient (RCR) | payer MEDICARE | END 2017-10-13 | LOC: M ONCR 09:57 | DX: C44.309 Unspecified malignant neoplasm of skin of other parts of face (principal) | CPT/HCPCS: 77336 ==

== ENCOUNTER → 2017-11-04 | Outpatient (CLI) | payer MEDICARE | LOC: M ONCR 10:29 | DX: C44.309 Unspecified malignant neoplasm of skin of other parts of face (principal) | CPT/HCPCS: G0463 ==

== ENCOUNTER → 2018-05-05 | Outpatient (CLI) | payer MEDICARE ==
[~2018-05-05] MED LIST changes: -AMLO10TA2 PO; +AMLO10TA5 PO; +LEVA1TAB2 PO; +SPIR-10; -SPIR25TA2; +TORS20TA2 PO
--- NOTE | 2018-05-06 11:38 | RADONC ---
RADIATION ONCOLOGY FOLLOWUP NOTE DATE: 05/05/2018 CHART NUMBER: [id number] DIAGNOSIS: Basal cell carcinoma. STAGE: II, T2N0M0. ECOG PERFORMANCE STATUS: 0 FOLLOWUP NOTE: Mr. Pastor is a 67-year-old man with a diagnosis of a stage II, T2N0M0, basal cell carcinoma involving the left forehead. He presents today after having completed a course of radiotherapy for local regional control on 10/07/2017. He has no complaints referable to his disease or to his treatments. REVIEW OF SYSTEMS: He denies nausea, vomiting, headaches or others significant untoward side effects. His energy level as such as he is able to maintain most day-to-day activities without any alteration of his lifestyle. The remainder of the review of systems is noncontributory. EXAMINATION FINDINGS: The skin within the irradiated volume shows no erythema and certainly no focal desquamation. The patient has rosacea. There is no evidence of local regional recurrence of his basal cell carcinoma. Lymphatics: No palpable peripheral lymphadenopathy. Lungs: Clear. The remainder of the physical examination is unchanged. IMPRESSION: No clinical evidence of disease. PLAN: Discharge from his clinic and return to his primary care physician for routine followup visits at his discretion.
== END ==
LOC: M ONCR 10:31
PROVIDERS: ATTEND Radiology Radiation Oncology
DX: Z08 Encounter for follow-up examination after completed treatment for malignant neoplasm (principal); Z85.828 Personal history of other malignant neoplasm of skin; Z92.3 Personal history of irradiation

== ENCOUNTER → 2018-08-04 | Outpatient (REF) | payer MEDICARE ==
[~2018-08-04] MED LIST changes: -ASPI1TAB PO; +ASPI81TA26 PO; -VALS1TAB48 PO; +VALS1TAB68 PO
[2018-08-05 12:04] LABS: ALBUMIN 4.1 GM/DL (3.2-5.2); BILIRUBIN,DIRECT 0.2 MG/DL (0.0-0.2); BILIRUBIN,TOTAL 0.7 MG/DL (0.2-1.0); CHOLESTEROL RISK RATIO 3.138 (<5); TOTAL PROTEIN 6.6 GM/DL (6.4-8.2)
== END ==
LOC: M SFHCCLAY 15:51
PROVIDERS: ATTEND Family Medicine
DX: E78.2 Mixed hyperlipidemia (principal)

== ENCOUNTER → 2019-03-23 | Outpatient (REF) | payer MEDICARE ==
[2019-03-23 18:09] LABS: ALBUMIN 3.8 GM/DL (3.2-5.2); CREATININE FOR GFR 1.35 MG/DL (0.70-1.30); GLOMERULAR FILTRATION RATE 55.8 (>49); MAGNESIUM LEVEL 2.2 MG/DL (1.8-2.4); PHOSPHORUS LEVEL 3.3 MG/DL (2.5-4.9); POTASSIUM SERUM 4.1 MEQ/L (3.5-5.1)
[2019-03-28 13:04] LABS: TOTAL 25(OH) VITAMIN D 25.8 NG/ML (30.0-100.0)
== END ==
LOC: M LAB REF 17:27
PROVIDERS: ATTEND Nurse Practitioner Family
DX: N18.3 Chronic kidney disease, stage 3 (moderate) (principal); E83.42 Hypomagnesemia

== ENCOUNTER → 2020-05-08 | Outpatient (CLI) | payer MEDICARE ==
[~2020-05-08] MED LIST changes: -AMLO10TA5 PO; +AMLO1TAB25 PO
[2020-05-08 12:24] LABS: HEMATOCRIT 33.8 % (42.0-52.0); MEAN CORPUSCULAR HEMOGLOBIN 24.3 pg (27.0-33.0); MEAN CORPUSCULAR HGB CONC 29.6 g/dl (32.0-36.5); PLATELET COUNT, AUTOMATED 287 10^3/uL (150-450); RED BLOOD COUNT 4.12 10^6/uL (4.30-6.10); WHITE BLOOD COUNT 11.1 10^3/uL (4.0-10.0)
[2020-05-08 12:52] LABS: ERYTHROCYTE SEDIMENTATION RATE 56 mm/hr (0-20)
[2020-05-08 12:55] LABS: ALBUMIN 3.2 GM/DL (3.2-5.2); ALT/SGPT 18 U/L (12-78); BILIRUBIN,TOTAL 0.4 MG/DL (0.2-1.0); BLOOD UREA NITROGEN 18 MG/DL (7-18); C REACTIVE PROTEIN QUANTITATIV 3.41 MG/DL (0.00-0.30); CALCIUM LEVEL 9.3 MG/DL (8.8-10.2); CARBON DIOXIDE LEVEL 31 MEQ/L (21-32); CHLORIDE LEVEL 104 MEQ/L (98-107); CHOLESTEROL LEVEL 176 MG/DL (<200); CHOLESTEROL RISK RATIO 5.028 (<5); CREATININE FOR GFR 1.29 MG/DL (0.70-1.30); GLOMERULAR FILTRATION RATE 58.6 (>42); GLUCOSE, FASTING 135 MG/DL (70-100); HDL CHOLESTEROL 35 MG/DL (>40); LDL CHOLESTEROL 118 MG/DL (<100); NON-HDL-C 141 MG/DL; RHEUMATOID FACTOR QUANT < 10.0 IU/ML (<15.0); SODIUM LEVEL 141 MEQ/L (136-145); TRIGLYCERIDES LEVEL 114 MG/DL (<150)
[2020-05-09 16:10] LABS: ANTINUCLEAR ANTIBODIES DIRECT Negative (Negative); CARDIOLIPIN IGA ANTIBODY <9 APL U/mL (0-11); CARDIOLIPIN IGG ANTIBODY 10 GPL U/mL (0-14); CARDIOLIPIN IGM ANTIBODY 12 MPL U/mL (0-12); Lyme Disease IgG/IgM Antibodie <0.91 ISR (0.00-0.90); Lyme Disease IgM Ab Quantitati <0.80 index (0.00-0.79)
== END ==
LOC: M LAB 11:55
PROVIDERS: ATTEND Family Medicine
DX: E78.5 Hyperlipidemia, unspecified (principal); M79.10 Myalgia, unspecified site

== ENCOUNTER → 2020-07-24 | Outpatient (CLI) | payer MEDICARE ==
--- NOTE | 2020-07-24 14:45 | REP ---
INDICATION: M54.2. COMPARISON: None TECHNIQUE: AP, lateral, open mouth, with flexion and extension lateral views FINDINGS: There is disc space narrowing at every level but particularly at the C4-5 through C6-7 levels inclusive. Anterior and posterior osteophytic ridging is the heaviest at those levels. There is a 2 mm anterolisthesis of C3 on C4 seen on the neutral lateral view which increases to 3 mm on the flexion view reducing to 0 on the extension view. Degenerative facet and uncovertebral joint changes are present at every level bilaterally. IMPRESSION: C-spine subluxation as described above. Consider neurosurgical consultation. <Electronically signed by Isac Cruz > 07/24/20 [id number]
--- NOTE | 2020-07-24 14:49 | REP ---
INDICATION: M25.519. COMPARISON: None. TECHNIQUE: Three views each shoulder FINDINGS: Right: The acromioclavicular relationship within normal limits. There is advanced asymmetric glenohumeral joint space narrowing with subchondral sclerosis and subchondral cyst formation. There is no acute fracture, dislocation, or subluxation.. Left: There is prominent humeral head marginal osteophytosis. The acromial clavicular relationship is within normal limits. There is humeral head and glenoid subchondral sclerosis and probable tiny subchondral cysts. There is no acute fracture. The imaged portion of the left lung field shows a calcified granuloma in the left upper lobe region unchanged from portable chest radiograph of 02/27/2017 IMPRESSION: Bilateral shoulder chronic changes as described above. <Electronically signed by Isac Cruz > 07/24/20 [id number]
== END ==
LOC: M CLY 13:30
PROVIDERS: ATTEND Internal Medicine
DX: M50.321 Other cervical disc degeneration at C4-C5 level (principal); M50.322 Other cervical disc degeneration at C5-C6 level; M50.323 Other cervical disc degeneration at C6-C7 level; M19.011 Primary osteoarthritis, right shoulder; M19.012 Primary osteoarthritis, left shoulder; M25.519 Pain in unspecified shoulder
CPT/HCPCS: 72052; 73030; G0463

== ENCOUNTER → 2020-08-29 | Outpatient (CLI) | payer MEDICARE ==
[2020-08-29 17:56] LABS: C REACTIVE PROTEIN QUANTITATIV 0.95 MG/DL (0.00-0.30)
[2020-08-29 18:08] LABS: TOTAL 25(OH) VITAMIN D 25.8 NG/ML (30.0-100.0)
== END ==
LOC: M LAB 16:48
PROVIDERS: ATTEND Internal Medicine
DX: R70.0 Elevated erythrocyte sedimentation rate (principal); R79.82 Elevated C-reactive protein (CRP)

== ENCOUNTER → 2020-08-30 | Outpatient (CLI) | payer MEDICARE ==
--- NOTE | 2020-08-30 15:51 | DEXAMM ---
INDICATION: Z79.52 CURRENT USE OF STEROID MEDICATION. COMPARISON: None. TECHNIQUE: Bone density was measured using dual-energy x-ray absorptiometry (DEXA). FINDINGS: AP SPINE L1-L4 BMD 1.411 g/cm2 Young Adult T-Score 1.7 Age Matched Z-Score 2.0. LT FEMUR, TOTAL BMD 1.049 g/cm2 Young Adult T-Score 0.3 Age Matched Z-Score 0.4. LT NECK BMD 0.842 g/cm2 Young Adult T-Score -1.4 Age Matched Z-Score -0.5. RT FEMUR, TOTAL BMD 1.089 g/cm2 Young Adult T-Score 0.6 Age Matched Z-Score 0.7. RT NECK BMD 0.892 g/cm2 Young Adult T-Score -1.1 Age Matched Z-Score -0.1. IMPRESSION: There is normal bone density of the spine. There is low bone density of the left hip. There is low bone density of the right hip. FOLLOW-UP: Recommendation for the next bone density exam: 2 years. <Electronically signed by Baron Schuler > 08/30/20 [id number]
== END ==
LOC: M WHC 14:43
PROVIDERS: ATTEND Internal Medicine
DX: M81.0 Age-related osteoporosis without current pathological fracture (principal); Z79.52 Long term (current) use of systemic steroids

== ENCOUNTER → 2020-10-05 | Outpatient (REF) | payer MEDICARE | LOC: M SFHCCLAY 15:18 | PROVIDERS: ATTEND Physician Assistant | DX: R10.11 Right upper quadrant pain (principal) ==

== ENCOUNTER → 2020-10-12 | Outpatient (CLI) | payer MEDICARE ==
[2020-10-12 16:36] LABS: BASO % 0.2 % (0.0-1.0); EOS # 0.1 10^3/uL (0.0-0.5); EOS % 0.5 % (0.0-3.0); HEMATOCRIT 35.9 % (42.0-52.0); HEMOGLOBIN 10.9 g/dl (13.5-17.5); LYMPH # 1.3 10^3/uL (1.5-5.0); LYMPH % 9.2 % (24.0-44.0); MEAN CORPUSCULAR HEMOGLOBIN 24.5 pg (27.0-33.0); MEAN CORPUSCULAR HGB CONC 30.4 g/dl (32.0-36.5); MEAN CORPUSCULAR VOLUME 80.9 fl (80.0-96.0); MONO # 0.7 10^3/uL (0.0-0.8); MONO % 5.2 % (2.0-8.0); NEUTROPHILS # 11.5 10^3/uL (1.5-8.5); NEUTROPHILS % 83.9 % (36.0-66.0); PLATELET COUNT, AUTOMATED 303 10^3/uL (150-450); RED BLOOD COUNT 4.44 10^6/uL (4.30-6.10); WHITE BLOOD COUNT 13.7 10^3/uL (4.0-10.0)
[2020-10-12 17:04] LABS: ALBUMIN 3.3 GM/DL (3.2-5.2); BILIRUBIN,TOTAL 0.6 MG/DL (0.2-1.0); CALCIUM LEVEL 9.4 MG/DL (8.8-10.2); CREATININE FOR GFR 1.33 MG/DL (0.70-1.30); GLOMERULAR FILTRATION RATE 56.4 (>42); POTASSIUM SERUM 4.3 MEQ/L (3.5-5.1); TOTAL PROTEIN 6.5 GM/DL (6.4-8.2)
[2020-10-12 17:16] LABS: HEMOGLOBIN A1c 6.8 %
== END ==
LOC: M LAB 15:11
PROVIDERS: ATTEND Physician Assistant
DX: R10.11 Right upper quadrant pain (principal); Z79.899 Other long term (current) drug therapy

== ENCOUNTER → 2021-04-26 | Outpatient (CLI) | payer MEDICARE ==
[2021-04-26 09:22] LABS: HEMATOCRIT 36.5 % (42.0-52.0); HEMOGLOBIN 10.9 g/dl (13.5-17.5); MEAN CORPUSCULAR HEMOGLOBIN 25.2 pg (27.0-33.0); MEAN CORPUSCULAR HGB CONC 29.9 g/dl (32.0-36.5); MEAN CORPUSCULAR VOLUME 84.3 fl (80.0-96.0); PLATELET COUNT, AUTOMATED 268 10^3/uL (150-450); RED BLOOD COUNT 4.33 10^6/uL (4.30-6.10); WHITE BLOOD COUNT 14.6 10^3/uL (4.0-10.0)
[2021-04-26 09:41] LABS: ALBUMIN 3.1 GM/DL (3.2-5.2); BILIRUBIN,TOTAL 0.6 MG/DL (0.2-1.0); CALCIUM LEVEL 9.3 MG/DL (8.8-10.2); CREATININE FOR GFR 1.3 MG/DL (0.70-1.30); GLOMERULAR FILTRATION RATE 57.9 (>42); POTASSIUM SERUM 4.1 MEQ/L (3.5-5.1); TOTAL PROTEIN 6.9 GM/DL (6.4-8.2)
== END ==
LOC: M LAB 08:49
PROVIDERS: ATTEND Nurse Practitioner Family
DX: R21 Rash and other nonspecific skin eruption (principal)

== ENCOUNTER → 2021-06-21 | Outpatient (CLI) | payer MEDICARE ==
[2021-06-21 18:07] LABS: BASO % 0.1 % (0.0-1.0); EOS # 0.1 10^3/uL (0.0-0.5); EOS % 0.3 % (0.0-3.0); HEMATOCRIT 37.5 % (42.0-52.0); HEMOGLOBIN 11.4 g/dl (13.5-17.5); LYMPH # 1.3 10^3/uL (1.5-5.0); LYMPH % 8.4 % (24.0-44.0); MEAN CORPUSCULAR HEMOGLOBIN 25.3 pg (27.0-33.0); MEAN CORPUSCULAR HGB CONC 30.4 g/dl (32.0-36.5); MEAN CORPUSCULAR VOLUME 83.1 fl (80.0-96.0); MONO # 0.7 10^3/uL (0.0-0.8); MONO % 4.8 % (2.0-8.0); NEUTROPHILS # 12.7 10^3/uL (1.5-8.5); NEUTROPHILS % 85.5 % (36.0-66.0); PLATELET COUNT, AUTOMATED 275 10^3/uL (150-450); RED BLOOD COUNT 4.51 10^6/uL (4.30-6.10); WHITE BLOOD COUNT 14.9 10^3/uL (4.0-10.0)
[2021-06-21 18:27] LABS: ALBUMIN 3.1 GM/DL (3.2-5.2); ALT/SGPT 21 U/L (12-78); BILIRUBIN,TOTAL 0.6 MG/DL (0.2-1.0); BLOOD UREA NITROGEN 17 MG/DL (7-18); C REACTIVE PROTEIN QUANTITATIV 1.18 MG/DL (0.00-0.30); CALCIUM LEVEL 8.9 MG/DL (8.8-10.2); CARBON DIOXIDE LEVEL 30 MEQ/L (21-32); CHLORIDE LEVEL 106 MEQ/L (98-107); CREATININE FOR GFR 1.05 MG/DL (0.70-1.30); GLOMERULAR FILTRATION RATE > 60.0 (>42); GLUCOSE, FASTING 135 MG/DL (70-100); POTASSIUM SERUM 3.9 MEQ/L (3.5-5.1); SODIUM LEVEL 141 MEQ/L (136-145); TOTAL PROTEIN 6.4 GM/DL (6.4-8.2)
[2021-06-21 18:31] LABS: ERYTHROCYTE SEDIMENTATION RATE 43 mm/hr (0-20)
[2021-06-21 18:48] LABS: HEPATITIS B SURFACE ANTIGEN NEGATIVE (NEGATIVE)
[2021-06-21 19:14] LABS: HEPATITIS B CORE ANTIBODY IGM NEGATIVE (NEGATIVE); HEPATITIS C VIRUS ABY INDEX 0.2 INDEX (<0.8)
[2021-06-21 19:16] LABS: HIV 1&2 SCREEN CENTAUR NEGATIVE (NEGATIVE)
== END ==
LOC: M LAB 17:28
PROVIDERS: ATTEND Nurse Practitioner Family
DX: L73.2 Hidradenitis suppurativa (principal); L71.1 Rhinophyma; A63.0 Anogenital (venereal) warts; Z79.899 Other long term (current) drug therapy

== ENCOUNTER → 2021-08-05 | Outpatient (CLI) | payer MEDICARE ==
[2021-08-05 12:34] LABS: BLOOD UREA NITROGEN 16 MG/DL (7-18); CALCIUM LEVEL 9.2 MG/DL (8.8-10.2); CARBON DIOXIDE LEVEL 31 MEQ/L (21-32); CHLORIDE LEVEL 105 MEQ/L (98-107); CHOLESTEROL LEVEL 170 MG/DL (<200); CREATININE FOR GFR 1.18 MG/DL (0.70-1.30); FREE T4 0.94 NG/DL (0.76-1.46); GLOMERULAR FILTRATION RATE > 60.0 (>42); GLUCOSE, FASTING 109 MG/DL (70-100); HDL CHOLESTEROL 40 MG/DL (>40); LDL CHOLESTEROL 105 MG/DL (<100); MAGNESIUM LEVEL 2.4 MG/DL (1.8-2.4); NON-HDL-C 130 MG/DL; POTASSIUM SERUM 4.2 MEQ/L (3.5-5.1); SODIUM LEVEL 140 MEQ/L (136-145); TRIGLYCERIDES LEVEL 127 MG/DL (<150)
== END ==
LOC: M LAB 11:01
PROVIDERS: ATTEND Physician Assistant
DX: R00.2 Palpitations (principal)

== ENCOUNTER → 2021-08-20 | Outpatient (REF) | payer MEDICARE | LOC: M SFHCCLAY 14:56 | PROVIDERS: ATTEND Family Medicine | DX: A63.0 Anogenital (venereal) warts (principal) ==

== ENCOUNTER → 2021-10-02 | Outpatient (CLI) | payer MEDICARE ==
[2021-10-02 13:13] LABS: HEMATOCRIT 35.9 % (42.0-52.0); HEMOGLOBIN 10.6 g/dl (13.5-17.5); MEAN CORPUSCULAR HEMOGLOBIN 24.9 pg (27.0-33.0); MEAN CORPUSCULAR HGB CONC 29.5 g/dl (32.0-36.5); MEAN CORPUSCULAR VOLUME 84.5 fl (80.0-96.0); PLATELET COUNT, AUTOMATED 297 10^3/uL (150-450); RED BLOOD COUNT 4.25 10^6/uL (4.30-6.10); WHITE BLOOD COUNT 12.4 10^3/uL (4.0-10.0)
[2021-10-02 14:33] LABS: ALBUMIN 3.2 GM/DL (3.2-5.2); BILIRUBIN,TOTAL 0.5 MG/DL (0.2-1.0); CALCIUM LEVEL 9.2 MG/DL (8.8-10.2); CREATININE FOR GFR 1.31 MG/DL (0.70-1.30); GLOMERULAR FILTRATION RATE 57.3 (>42); POTASSIUM SERUM 4.3 MEQ/L (3.5-5.1); TOTAL PROTEIN 6.5 GM/DL (6.4-8.2)
== END ==
LOC: M LAB 11:37
PROVIDERS: ATTEND Physician Assistant
DX: R07.89 Other chest pain (principal)

== ENCOUNTER → 2021-11-06 | Outpatient (CLI) | payer MEDICARE ==
[~2021-11-06] MED LIST changes: +ATOR40TA75 PO; +CLOP75TA2 PO; +DOXA1TAB49 PO; +LOSA100T45 PO; +MINO10TA PO; +PRED10TA2 PO
== END ==
LOC: M LABSMTC 11:09
PROVIDERS: ATTEND Anesthesiology
DX: Z01.818 Encounter for other preprocedural examination (principal); Z11.52 Encounter for screening for COVID-19

== ENCOUNTER → 2021-12-18 | Outpatient (REF) | payer MEDICARE ==
[2021-12-18 11:35] LABS: HEMATOCRIT 34.3 % (42.0-52.0); MEAN CORPUSCULAR HEMOGLOBIN 24.4 pg (27.0-33.0); MEAN CORPUSCULAR HGB CONC 29.2 g/dl (32.0-36.5); MEAN CORPUSCULAR VOLUME 83.9 fl (80.0-96.0); PLATELET COUNT, AUTOMATED 267 10^3/uL (150-450); RED BLOOD COUNT 4.09 10^6/uL (4.30-6.10); WHITE BLOOD COUNT 12.6 10^3/uL (4.0-10.0)
[2021-12-18 12:23] LABS: ALT/SGPT 14 U/L (12-78); BILIRUBIN,TOTAL 0.5 MG/DL (0.2-1.0); BLOOD UREA NITROGEN 16 MG/DL (7-18); CARBON DIOXIDE LEVEL 31 MEQ/L (21-32); CHLORIDE LEVEL 106 MEQ/L (98-107); CREATININE FOR GFR 1.24 MG/DL (0.70-1.30); FERRITIN 30 NG/ML (26-388); GLOMERULAR FILTRATION RATE > 60.0 (>42); GLUCOSE, FASTING 140 MG/DL (70-100); IRON (FE) 22 UG/DL (65-175); PERCENT SATURATION 6.8 % (19.7-50.0); POTASSIUM SERUM 3.9 MEQ/L (3.5-5.1); SODIUM LEVEL 141 MEQ/L (136-145); TOTAL IRON BINDING CAPACITY 325 UG/DL (250-450); TOTAL PROTEIN 6.5 GM/DL (6.4-8.2)
[2021-12-18 15:05] LABS: BASO % 0.3 % (0.0-1.0); EOS % 0.2 % (0.0-3.0); LYMPH # 1.3 10^3/uL (1.5-5.0); LYMPH % 10.2 % (24.0-44.0); MONO # 0.7 10^3/uL (0.0-0.8); NEUTROPHILS # 10.8 10^3/uL (1.5-8.5); NEUTROPHILS % 83.4 % (36.0-66.0)
== END ==
LOC: M SFHCCLAY 09:32
PROVIDERS: ATTEND Nurse Practitioner Family
DX: R06.09 Other forms of dyspnea (principal); D50.9 Iron deficiency anemia, unspecified

== ENCOUNTER → 2021-12-18 | Outpatient (CLI) | payer MEDICARE ==
[~2021-12-18] MED LIST changes: +ISOVUE-370 76% 100ML VIAL As Ordered ONE
== END ==
LOC: M RAD 14:34
PROVIDERS: ATTEND Nurse Practitioner Family
DX: R91.8 Other nonspecific abnormal finding of lung field (principal); R06.09 Other forms of dyspnea

== ENCOUNTER → 2022-01-20 | Outpatient (CLI) | payer MEDICARE ==
[~2022-01-20] MED LIST changes: -ISOVUE-370 76% 100ML VIAL As Ordered ONE
== END ==
LOC: M RAD 18:02
PROVIDERS: ATTEND Internal Medicine Pulmonary Disease
DX: R91.8 Other nonspecific abnormal finding of lung field (principal)

== ENCOUNTER → 2022-02-10 | Outpatient (CLI) | payer MEDICARE ==
[2022-02-10 16:01] LABS: BASO % 0.1 % (0.0-1.0); EOS # 0.1 10^3/uL (0.0-0.5); EOS % 0.5 % (0.0-3.0); HEMATOCRIT 33.7 % (42.0-52.0); HEMOGLOBIN 9.3 g/dl (13.5-17.5); LYMPH # 1.1 10^3/uL (1.5-5.0); LYMPH % 9.6 % (24.0-44.0); MEAN CORPUSCULAR HEMOGLOBIN 22.7 pg (27.0-33.0); MEAN CORPUSCULAR HGB CONC 27.6 g/dl (32.0-36.5); MEAN CORPUSCULAR VOLUME 82.4 fl (80.0-96.0); MONO # 0.6 10^3/uL (0.0-0.8); MONO % 5.4 % (2.0-8.0); NEUTROPHILS # 9.7 10^3/uL (1.5-8.5); NEUTROPHILS % 83.6 % (36.0-66.0); PLATELET COUNT, AUTOMATED 244 10^3/uL (150-450); RED BLOOD COUNT 4.09 10^6/uL (4.30-6.10); WHITE BLOOD COUNT 11.6 10^3/uL (4.0-10.0)
== END ==
LOC: M LAB 14:27
PROVIDERS: ATTEND Internal Medicine Pulmonary Disease
DX: R91.8 Other nonspecific abnormal finding of lung field (principal)

== ENCOUNTER → 2022-04-04 | Outpatient (CLI) | payer MEDICARE ==
[~2022-04-04] MED LIST changes: +DIGO0.123 PO; +HYDR-4517 PO; +XARE20TA PO
== END ==
LOC: M CARPUL 14:31
PROVIDERS: ATTEND Internal Medicine Critical Care Medicine
DX: I27.20 Pulmonary hypertension, unspecified (principal); I42.2 Other hypertrophic cardiomyopathy; I34.81 Nonrheumatic mitral (valve) annulus calcification; I51.7 Cardiomegaly; I31.39 Other pericardial effusion (noninflammatory); J96.11 Chronic respiratory failure with hypoxia

== ENCOUNTER → 2022-04-09 | Outpatient (CLI) | payer MEDICARE | LOC: M LABSMTC 10:52 | PROVIDERS: ATTEND Anesthesiology | DX: Z01.818 Encounter for other preprocedural examination (principal); Z11.52 Encounter for screening for COVID-19 ==

== ENCOUNTER → 2022-05-01 | Outpatient (REF) | payer MEDICARE ==
[2022-05-01 18:21] LABS: PERCENT SATURATION 5.1 % (19.7-50.0)
[2022-05-01 18:22] LABS: FERRITIN 17.5 NG/ML (10.5-307.3)
== END ==
LOC: M LAB REF 17:11
PROVIDERS: ATTEND Nurse Practitioner Family
DX: D50.9 Iron deficiency anemia, unspecified (principal)

== ENCOUNTER → 2022-07-10 | Outpatient (CLI) | payer MEDICARE ==
[~2022-07-10] MED LIST changes: -LOSA100T45 PO; +LOSA100T46 PO
== END ==
LOC: M CLY 10:51
PROVIDERS: ATTEND Physician Assistant
DX: I51.7 Cardiomegaly (principal); J84.89 Other specified interstitial pulmonary diseases; R05.1 Acute cough

== ENCOUNTER → 2022-10-30 | Outpatient (REF) | payer MEDICARE ==
[2022-10-30 19:06] LABS: PERCENT SATURATION 6.6 % (19.7-50.0)
[2022-10-31 08:24] LABS: FERRITIN 49.5 NG/ML (10.5-307.3)
== END ==
LOC: M LAB REF 17:33
PROVIDERS: ATTEND Nurse Practitioner Family
DX: D50.9 Iron deficiency anemia, unspecified (principal)

== ENCOUNTER 2022-11-27 14:10 | Outpatient (CLI) | payer MEDICARE ==
[~2022-11-27 14:10] MED LIST changes: +ALBUTEROL SULFATE 2.5MG/0.5ML INH NEB SOLN INH PRN; +EPINEPHrine INJ 1 MG/ML 1ML AMP IM PRN; +FERRIC CARBOXYMALTOSE INJ 750 MG in NS 250 ML (>50kg) IV ONE; +NS 1,000 ML IV SCH; -SPIR-10; +SPIR-10 PO; +diphenhydrAMINE 50MG/ML VIAL IV PRN; +methylPREDNISolone 125MG 2ML VIAL IV PRN
[2022-11-27 14:44] VITALS: BP 115/71; O2SAT 99
[2022-11-27 15:35] VITALS: BP 98/59; O2SAT 98
== END 2022-11-27 15:45 | disposition home or self-care (01) ==
LOC: M INFU 14:10
PROVIDERS: ATTEND Nurse Practitioner Family
DX: D50.9 Iron deficiency anemia, unspecified (principal); Z88.8 Allergy status to other drugs, medicaments and biological substances; Z88.4 Allergy status to anesthetic agent
CPT/HCPCS: 96365; J1439

== ENCOUNTER 2022-11-29 09:18 | Inpatient (IN) | payer MEDICARE ==
[~2022-11-29] VITALS: Ht 175.3 cm; Wt 139.3 kg
[~2022-11-29 09:18] MED LIST changes: -ALBUTEROL SULFATE 2.5MG/0.5ML INH NEB SOLN INH PRN; -EPINEPHrine INJ 1 MG/ML 1ML AMP IM PRN; -FERRIC CARBOXYMALTOSE INJ 750 MG in NS 250 ML (>50kg) IV ONE; -NS 1,000 ML IV SCH; -diphenhydrAMINE 50MG/ML VIAL IV PRN; -methylPREDNISolone 125MG 2ML VIAL IV PRN
[2022-11-29] MEDS ORDERED: NS 1,000 ML IV ONE ×2 (10:10→12:40)
[2022-11-29] MEDS ORDERED: DOXY100C3 PO (10:16)
[2022-11-29] MEDS ORDERED: METO50TA7 PO (10:16)
[2022-11-29] MEDS ORDERED: POTA-151 PO (10:16)
[2022-11-29] MEDS ORDERED: BUME2TAB3 PO (10:16)
[2022-11-29 10:48] LABS: BASO % 0.2 % (0.0-1.0); EOS # 0.2 10^3/uL (0.0-0.5); EOS % 2.2 % (0.0-3.0); HEMATOCRIT 29.1 % (42.0-52.0); HEMOGLOBIN 8.4 g/dl (13.5-17.5); LYMPH # 0.9 10^3/uL (1.5-5.0); LYMPH % 8.7 % (24.0-44.0); MEAN CORPUSCULAR HEMOGLOBIN 24.4 pg (27.0-33.0); MEAN CORPUSCULAR HGB CONC 28.9 g/dl (32.0-36.5); MEAN CORPUSCULAR VOLUME 84.6 fl (80.0-96.0); MONO # 0.7 10^3/uL (0.0-0.8); NEUTROPHILS # 8.2 10^3/uL (1.5-8.5); NEUTROPHILS % 81.4 % (36.0-66.0); PLATELET COUNT, AUTOMATED 228 10^3/uL (150-450); RED BLOOD COUNT 3.44 10^6/uL (4.30-6.10); WHITE BLOOD COUNT 10.1 10^3/uL (4.0-10.0)
[2022-11-29 11:07] LABS: INR 1.32; PROTHROMBIN TIME 16.1 SECONDS (12.5-14.5)
[2022-11-29 11:08] LABS: PARTIAL THROMBOPLASTIN TIME 32.1 SECONDS (24.8-34.2)
[2022-11-29 11:21] LABS: DIGOXIN LEVEL 0.2 NG/ML (0.8-2.0)
[2022-11-29 11:27] LABS: BILIRUBIN,DIRECT 0.6 MG/DL (<0.4); BILIRUBIN,TOTAL 1.3 MG/DL (0.3-1.2); CALCIUM LEVEL 7.9 MG/DL (8.3-10.6); CK-MB VALUE MASS 1.8 NG/ML (<3.6); CREATININE FOR GFR 1.38 MG/DL (0.70-1.30); GLOMERULAR FILTRATION RATE 53.8 (>42); MB/CK RELATIVE INDEX 1.63 (< OR =4); POTASSIUM SERUM 4.6 MMOL/L (3.5-5.1); TOTAL PROTEIN 5.8 G/DL (5.7-8.2)
[2022-11-29 12:48] LABS: CK-MB VALUE MASS 1.6 NG/ML (<3.6); MB/CK RELATIVE INDEX 1.92 (< OR =4)
[2022-11-29] MEDS ORDERED: cefTRIAXone SOD 2 GM in D5W MINI-BAG PLUS 50 ML IV ONE (13:30)
[2022-11-29] MEDS ORDERED: ISOVUE-370 76% 100ML VIAL As Ordered ONE (13:38)
[2022-11-29 13:51] LABS: PROCALCITONIN 0.04 ng/ml
[2022-11-29 14:27] LABS: CK-MB VALUE MASS 1.8 NG/ML (<3.6); MB/CK RELATIVE INDEX 2.33 (< OR =4)
[2022-11-29] MEDS ORDERED: DIGOXIN INJ 0.5 MG/2 ML AMP IV STA (14:34)
[2022-11-29 15:27] LABS: AMPHETAMINES LEVEL URINE NEGATIVE (NEGATIVE)
[2022-11-29 15:28] LABS: BARBITURATES URINE NEGATIVE (NEGATIVE); BENZODIAZEPINES URINE NEGATIVE (NEGATIVE); CANNABINOIDS URINE NEGATIVE (NEGATIVE); COCAINE METABOLITE URINE NEGATIVE (NEGATIVE); METHADONE URINE NEGATIVE (NEGATIVE); OPIATES URINE NEGATIVE (NEGATIVE); PHENCYCLIDINE URINE NEGATIVE (NEGATIVE)
[2022-11-29 16:32] LABS: CK-MB VALUE MASS 1.7 NG/ML (<3.6)
[2022-11-29 16:38] LABS: MB/CK RELATIVE INDEX 2.04 (< OR =4)
[2022-11-29] MEDS ORDERED: NS 1,000 ML IV SCH (17:30)
[2022-11-29] MEDS ORDERED: ACETAMINOPHEN TAB 650MG DOSE (2X325MG) PO PRN (17:30)
[2022-11-29] MEDS ORDERED: LORazepam 2 MG TAB PO PRN (17:35)
[2022-11-29] MEDS ORDERED: NYST10006 TOP (17:41)
[2022-11-29] MEDS ORDERED: CETI-24 PO (17:41)
[2022-11-29] MEDS ORDERED: HOME MED LIST COMPLETE! XX SCH (17:45)
[2022-11-29] MEDS: MULTIVITAMINS/MINERALS THERAP 1 TAB PO SCH (18:22)
[2022-11-29] MEDS: FOLIC ACID 1MG TAB PO SCH (18:22)
[2022-11-29] MEDS: DIGOXIN 0.125 MG TAB PO SCH (18:37)
[2022-11-29 20:49] VITALS: BP 126/72; TEMP 99; O2SAT 93
[2022-11-29] MEDS: THIAMINE 100 MG TAB PO SCH (20:56)
[2022-11-29] MEDS: guaiFENesin ER 600 MG TAB PO SCH (20:56)
[2022-11-29 21:00] VITALS: BP 126/72
[2022-11-29] MEDS: IPRATROPIUM 0.5MG/ALBUTEROL 2.5MG INH SOL UD 3ML (DUONEB) NEB SCH (22:08)
[2022-11-30] VITALS (38 sets, daily range): BP systolic 87–141; BP diastolic 54–90; TEMP 97–99.1; O2SAT 83–100
[2022-11-30] MEDS: IPRATROPIUM 0.5MG/ALBUTEROL 2.5MG INH SOL UD 3ML (DUONEB) NEB SCH ×4 (02:28→18:50)
[2022-11-30 06:36] LABS: HEMATOCRIT 31.8 % (42.0-52.0); HEMOGLOBIN 8.6 g/dl (13.5-17.5); MEAN CORPUSCULAR HEMOGLOBIN 24.4 pg (27.0-33.0); MEAN CORPUSCULAR VOLUME 90.3 fl (80.0-96.0); PLATELET COUNT, AUTOMATED 223 10^3/uL (150-450); RED BLOOD COUNT 3.52 10^6/uL (4.30-6.10); WHITE BLOOD COUNT 13.7 10^3/uL (4.0-10.0)
[2022-11-30 06:54] LABS: CALCIUM LEVEL 7.8 MG/DL (8.3-10.6); CREATININE FOR GFR 1.5 MG/DL (0.70-1.30); GLOMERULAR FILTRATION RATE 48.8 (>42); POTASSIUM SERUM 3.9 MMOL/L (3.5-5.1)
[2022-11-30] MEDS: ASPIRIN 81MG ENTERIC TABLET PO SCH (08:36)
[2022-11-30] MEDS: FOLIC ACID 1MG TAB PO SCH (08:36)
[2022-11-30] MEDS: THIAMINE 100 MG TAB PO SCH ×2 (08:37→20:25)
[2022-11-30] MEDS: MULTIVITAMINS/MINERALS THERAP 1 TAB PO SCH (08:37)
[2022-11-30] MEDS: guaiFENesin ER 600 MG TAB PO SCH (08:37)
[2022-11-30] MEDS: DIGOXIN 0.125 MG TAB PO SCH (08:37)
[2022-11-30] MEDS ORDERED: POTASSIUM CHLORIDE 10MEQ SR TABLET PO SCH (09:00)
[2022-11-30] MEDS ORDERED: DOXAZOSIN MESYLATE 4 MG TAB PO SCH (09:00)
[2022-11-30] MEDS ORDERED: CETIRIZINE (ZyrTEC) 10 MG TAB PO SCH (09:00)
[2022-11-30] MEDS ORDERED: ENOXAPARIN 150MG/ML SYRINGE SC SCH (09:00)
[2022-11-30] MEDS ORDERED: predniSONE 20 MG TAB PO SCH (09:00)
[2022-11-30] MEDS ORDERED: DOXYCYCLINE HYCLATE 100MG TABLET PO SCH (09:00)
[2022-11-30] MEDS ORDERED: AMIODARONE HCL 150 MG in IV 1 EA IV ONE (09:00)
[2022-11-30] MEDS ORDERED: LOSARTAN 50MG TABLET PO SCH (09:00)
[2022-11-30] MEDS ORDERED: METOPROLOL TART 50 MG TAB PO SCH (09:00)
[2022-11-30 09:09] LABS: VENOUS BASE EXCESS -0.9 (-2.0-2.0); VENOUS HCO3 26.6 MMOL/L (23.0-27.0); VENOUS O2 SATURATION 99.5 % (60.0-80.0); VENOUS PARTIAL PRESSURE CO2 58.8 mmHg (38.0-50.0); VENOUS PARTIAL PRESSURE O2 187.1 mmHg (30.0-50.0); VENOUS PH 7.273 UNITS (7.330-7.430); VENOUS STANDARD HCO3 23.8 MMOL/L; VENOUS TOTAL CO2 28.4 MMOL/L (24.0-28.0)
[2022-11-30] MEDS ORDERED: AMIODARONE HCL 360 MG in IV 1 EA IV SCH (09:15)
[2022-11-30] MEDS: FUROSEMIDE 40MG/4ML VIAL IV SCH ×2 (09:57→16:12)
[2022-11-30] MEDS: cefTRIAXone SOD 2 GM in D5W MINI-BAG PLUS 50 ML IV SCH (12:22)
[2022-11-30] MEDS: ENOXAPARIN 120MG/0.8ML SYRINGE SC SCH ×2 (12:27→20:25)
[2022-11-30] MEDS ORDERED: FUROSEMIDE 40MG/4ML VIAL IV ONE (12:30)
[2022-11-30] MEDS ORDERED: oxyCODONE 5MG TAB PO PRN (13:25)
[2022-11-30 14:43] LABS: VENOUS HCO3 27.1 MMOL/L (23.0-27.0); VENOUS O2 SATURATION 99.5 % (60.0-80.0); VENOUS PARTIAL PRESSURE CO2 63.9 mmHg (38.0-50.0); VENOUS PARTIAL PRESSURE O2 211.7 mmHg (30.0-50.0); VENOUS PH 7.245 UNITS (7.330-7.430); VENOUS STANDARD HCO3 23.7 MMOL/L
[2022-11-30] MEDS: AMIODARONE HCL 360 MG in IV 1 EA IV SCH (16:12)
[2022-11-30] MEDS ORDERED: RIVAROXABAN 20MG TAB (XARELTO) PO SCH (18:00)
[2022-12-01] VITALS (53 sets, daily range): BP systolic 74–140; BP diastolic 43–105; TEMP 98.6–101.3; O2SAT 57–100
[2022-12-01] MEDS ORDERED: ACETAMINOPHEN *IV* 1,000 MG in IV 1 EA IV ONE ×2 (00:45→16:00)
[2022-12-01] MEDS: IPRATROPIUM 0.5MG/ALBUTEROL 2.5MG INH SOL UD 3ML (DUONEB) NEB SCH (00:49)
[2022-12-01 00:52] LABS: ABG BASE EXCESS 2.5 (-2.0-2.0); ABG HCO3 29.3 MMOL/L (22.0-26.0); ABG O2 SATURATION 99.6 % (95.0-99.0); ABG PARTIAL PRESSURE O2 213.3 mmHg (75.0-100.0); ABG STANDARD HCO3 26.7 MMOL/L. (22.0-26.0); ABG TOTAL CO2 31.1 MMOL/L (23.0-31.0); ABG pH (ARTERIAL) 7.322 UNITS (7.350-7.450)
[2022-12-01] MEDS ORDERED: NS 1,000 ML IV ONE (01:35)
[2022-12-01] MEDS ORDERED: LORazepam 2 MG/ML 1ML VIAL IV STA (01:35)
[2022-12-01] MEDS ORDERED: VANCOMYCIN HCL 1,000 MG, VIAL MATE ADAPTER 1 EACH in D5W 250 ML IV ONE ×2 (02:00→03:00)
[2022-12-01] MEDS: AMIODARONE HCL 360 MG in IV 1 EA IV SCH (03:25)
[2022-12-01] MEDS ORDERED: LORazepam 2 MG/ML 1ML VIAL IV PRN ×2 (03:35→23:15)
[2022-12-01 04:28] LABS: VENOUS BASE EXCESS 1.9 (-2.0-2.0); VENOUS HCO3 28.3 MMOL/L (23.0-27.0); VENOUS O2 SATURATION 99.7 % (60.0-80.0); VENOUS PARTIAL PRESSURE CO2 54.2 mmHg (38.0-50.0); VENOUS PARTIAL PRESSURE O2 236.1 mmHg (30.0-50.0); VENOUS PH 7.335 UNITS (7.330-7.430); VENOUS STANDARD HCO3 26.2 MMOL/L; VENOUS TOTAL CO2 29.9 MMOL/L (24.0-28.0)
[2022-12-01 04:34] LABS: HEMOGLOBIN 7.8 g/dl (13.5-17.5); MEAN CORPUSCULAR HEMOGLOBIN 24.3 pg (27.0-33.0); MEAN CORPUSCULAR HGB CONC 27.9 g/dl (32.0-36.5); MEAN CORPUSCULAR VOLUME 87.2 fl (80.0-96.0); PLATELET COUNT, AUTOMATED 194 10^3/uL (150-450); RED BLOOD COUNT 3.21 10^6/uL (4.30-6.10); WHITE BLOOD COUNT 13.4 10^3/uL (4.0-10.0)
[2022-12-01 05:01] LABS: ALBUMIN 2.4 G/DL (3.2-5.2); ALKALINE PHOSPHATASE 94 U/L (46-116); ALT/SGPT 12 U/L (7.0-40); AST/SGOT 10 U/L (<34); BILIRUBIN,TOTAL 0.6 MG/DL (0.3-1.2); BLOOD UREA NITROGEN 17 MG/DL (9-23); CALCIUM LEVEL 7.7 MG/DL (8.3-10.6); CARBON DIOXIDE LEVEL 31 MMOL/L (20-31); CHLORIDE LEVEL 106 MMOL/L (98-107); CREATININE FOR GFR 1.58 MG/DL (0.70-1.30); GLUCOSE, FASTING 70 MG/DL (74-106); POTASSIUM SERUM 3.5 MMOL/L (3.5-5.1); SODIUM LEVEL 145 MMOL/L (136-145)
[2022-12-01] MEDS ORDERED: IPRATROPIUM 0.5MG/ALBUTEROL 2.5MG INH SOL UD 3ML (DUONEB) NEB PRN (08:00)
[2022-12-01 08:25] LABS: ETHYL ALCOHOL (ETHANOL) < 0.003 % (0.000-0.010)
[2022-12-01] MEDS: ASPIRIN 81MG ENTERIC TABLET PO SCH (08:59)
[2022-12-01] MEDS: THIAMINE 100 MG TAB PO SCH ×2 (08:59→20:58)
[2022-12-01] MEDS: MULTIVITAMINS/MINERALS THERAP 1 TAB PO SCH (08:59)
[2022-12-01] MEDS: FOLIC ACID 1MG TAB PO SCH (08:59)
[2022-12-01] MEDS ORDERED: TRIAMCINOLONE ACET 0.1% CREAM 15GM EXT SCH (09:00)
[2022-12-01] MEDS ORDERED: FUROSEMIDE 40MG/4ML VIAL IV ONE (09:00)
[2022-12-01] MEDS: ENOXAPARIN 120MG/0.8ML SYRINGE SC SCH ×2 (09:06→21:00)
[2022-12-01] MEDS ORDERED: FUROSEMIDE injection 250 MG in D5W 225 ML IV SCH (10:00)
[2022-12-01] MEDS: cefTRIAXone SOD 2 GM in D5W MINI-BAG PLUS 50 ML IV SCH (11:29)
[2022-12-01] MEDS ORDERED: LIDOCAINE 1% MDV 20ML VIAL As Ordered ONE (13:51)
[2022-12-01] MEDS ORDERED: VANCOMYCIN HCL 1,000 MG, VIAL MATE ADAPTER 1 EACH in NS 250 ML IV SCH (14:00)
[2022-12-01] MEDS ORDERED: HEPARIN 1,000UNITS/ML 10ML VIAL (FOR RADIOLOGY & DIALYSIS ONLY) IV PRN (14:45)
[2022-12-01] MEDS ORDERED: AMIODARONE HCL 360 MG in IV 1 EA IV SCH (16:00)
[2022-12-01] MEDS ORDERED: LR 1,000 ML IV ONE (17:40)
[2022-12-01] MEDS ORDERED: ONDANSETRON 4MG 2ML VIAL IV PRN (23:15)
[2022-12-01] MEDS ORDERED: ACETAMINOPHEN 650MG SUPP PR PRN (23:15)
[2022-12-01] MEDS: MORPHINE 2 MG/ML 1ML VIAL IV PRN (23:28)
[2022-12-02] VITALS (10 sets, daily range): BP systolic 97–107; BP diastolic 61–66; TEMP 96.3–99.3; O2SAT 65–89
[2022-12-02] MEDS: MORPHINE 2 MG/ML 1ML VIAL IV PRN (03:14)
== END 2022-12-02 04:45 | disposition expired | DRG 291 ==
LOC: EDBD 09:18 → M ED 09:18 → EDBEDREQSVC 16:40 → M ED INP 17:26 → M MSPAV 20:48 → M ICU 11-30 07:48
PROVIDERS: ADMIT Family Medicine; ATTEND Internal Medicine Pulmonary Disease
DX: I13.0 Hypertensive heart and chronic kidney disease with heart failure and stage 1 through stage 4 chronic kidney disease, or unspecified chronic kidney disease (principal); J96.21 Acute and chronic respiratory failure with hypoxia; J96.22 Acute and chronic respiratory failure with hypercapnia; G93.41 Metabolic encephalopathy; I50.31 Acute diastolic (congestive) heart failure; N17.9 Acute kidney failure, unspecified; F10.139 Alcohol abuse with withdrawal, unspecified; I48.91 Unspecified atrial fibrillation; R53.1 Weakness; D50.9 Iron deficiency anemia, unspecified; G47.33 Obstructive sleep apnea (adult) (pediatric); Z51.5 Encounter for palliative care; Z66 Do not resuscitate; L71.9 Rosacea, unspecified; E78.5 Hyperlipidemia, unspecified; N43.3 Hydrocele, unspecified; N18.9 Chronic kidney disease, unspecified; R91.1 Solitary pulmonary nodule; N48.83 Acquired buried penis; N50.89 Other specified disorders of the male genital organs; I27.23 Pulmonary hypertension due to lung diseases and hypoxia; Z79.82 Long term (current) use of aspirin; Z91.148 Patient's other noncompliance with medication regimen for other reason; Z79.01 Long term (current) use of anticoagulants; Z79.899 Other long term (current) drug therapy; Z88.8 Allergy status to other drugs, medicaments and biological substances; Z88.4 Allergy status to anesthetic agent